=== PATIENT | female | born 1940 | race Caucasian/White ===

== ENCOUNTER 2024-02-12 15:49 | Observation (INO) | payer MEDICARE ==
--- NOTE | 2024-02-12 16:21 | ERPHSYRPT ---
- History of Present Illness Time Seen by Provider: 02/12/24 16:18 Source: patient, family Physician History: 83-year-old female history of dementia diabetes presents to our ED with a family friend who brought patient to our ED for evaluation of generalized weakness and confusion. Patient appears confused and is not a reliable historian. Patient believes she is here to obtain information on how to administer her home meds. The person that brought patient to our ED is reportedly the of a man who picked our patient up from a [place] [facility] care facility and brought her to his personal home for care. The person that brought patient to our ED left and not available for physician to ask questions Portions of this note were created with voice recognition technology. There may be grammatical, spelling, punctuation or sound alike errors Timing/Duration: today Severity: moderate Modifying Factors: Improves With: nothing Associated Symptoms: denies symptoms Allergies/Adverse Reactions: ampicillin Allergy (Verified 02/12/24 18:28) morphine Allergy (Verified 02/12/24 18:28) pineapple Allergy (Verified 02/12/24 18:28) - Review of Systems Constitutional: No Symptoms, No Fever, No Chills Eyes: No Symptoms Ears, Nose, & Throat: No Symptoms Respiratory: No Symptoms, No Cough, No Dyspnea Cardiac: No Symptoms, No Chest Pain, No Edema, No Syncope Abdominal/Gastrointestinal: No Symptoms, No Abdominal Pain, No Nausea, No Vomiting, No Diarrhea Genitourinary Symptoms: No Symptoms, No Dysuria Musculoskeletal: No Symptoms, No Back Pain, No Neck Pain Skin: No Symptoms, No Rash Neurological: No Symptoms, No Dizziness, No Focal Weakness, No Sensory Changes Psychological: No Symptoms Endocrine: No Symptoms Hematologic/Lymphatic: No Symptoms Immunological/Allergic: No Symptoms All Other Systems: Reviewed and Negative - Nursing Vital Signs Nursing Vital Signs: Initial Vital Signs Temperature 97.1 F 02/12/24 16:05 Pulse Rate 63 02/12/24 16:05 Respiratory Rate 20 02/12/24 16:05 Blood Pressure 172/108 02/12/24 16:05 O2 Sat by Pulse Oximetry 98 02/12/24 16:05 Pain Scale Pain Intensity 0 - Physical Exam General Appearance: no apparent distress, alert Eye Exam: PERRL/EOMI, eyes nml inspection Ears, Nose, Throat Exam: normal ENT inspection, TMs normal, pharynx normal, moist mucous membranes Neck Exam: normal inspection, non-tender, supple, full range of motion Respiratory Exam: normal breath sounds, lungs clear, airway intact, No respiratory distress Cardiovascular Exam: regular rate/rhythm, normal heart sounds, normal peripheral pulses Gastrointestinal/Abdomen Exam: soft, normal bowel sounds, No tenderness, No mass Back Exam: normal inspection, normal range of motion, No CVA tenderness, No vertebral tenderness Extremity Exam: normal inspection, normal range of motion, pelvis stable Neurologic Exam: alert, oriented x 3, cooperative, normal mood/affect, nml cere bellar function, nml station & gait, sensation nml, No motor deficits Skin Exam: normal color, warm, dry, No rash Lymphatic Exam: No adenopathy SpO2 Interpretation: normal SpO2: 98 O2 Delivery: Room Air - Course Nursing assessment & vital signs reviewed: Yes - CT Exams Head CT Interpretation: Tele-radiologist Report (No comps. 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) Ordered Tests: Active Orders 24 hr Category Date Time Status Bedrest ROUTINE Activity 02/12/24 18:45 Active Call Admit Doctor for Orders ON ADMISSION Care 02/12/24 18:44 Active Work Manager ROUTINE Care 02/12/24 18:45 Active Work Manager STAT Care 02/12/24 16:22 Active Code Status Order ROUTINE Care 02/12/24 18:44 Active EKG-ER Only STAT Care 02/12/24 16:21 Active Neuro Checks Q4H Care 02/12/24 18:[address] in Observation ROUTINE Care 02/12/24 18:44 Active Pulse Oximetry (ED) STAT Care 02/12/24 16:21 Active Telemetry q6h Care 02/12/24 18:44 Active Telemetry q6h Care 02/12/24 18:45 Active ACO SDOH Referral ONCE Cons 02/12/24 16:48 Active Consistent Carbohydrate Diet 1800 Calorie Diet 02/13/24 Breakfast Active HEAD WITHOUT CONTRAST [CT] Stat Exams 02/12/24 18:31 Taken CBC W DIFF Stat Lab 02/12/24 16:40 Completed CMP Stat Lab 02/12/24 16:40 Completed CULTURE,URINE Stat Lab 02/12/24 16:58 Received POCT GLUCOSE Stat Lab 02/12/24 15:57 Completed TROPONIN Q4H Lab 02/12/24 16:40 Completed TROPONIN Q4H Lab 02/12/24 20:30 Ordered TROPONIN Q4H Lab 02/13/24 00:30 Ordered UA W/RFX UR CULTURE Stat Lab 02/12/24 16:58 Completed Pulse Oximetry CONTINUOUS RT 02/12/24 18:45 Active Medication Summary Discontinued Medications Generic Name Dose Route Start Last Admin Trade Name Milanq PRN Reason Stop Dose Admin Ceftriaxone Sodium 1 gm in 100 mls @ 200 mls/hr 02/12/24 18:26 02/12/24 18:56 Rocephin 1 Gm / 100 Ml Nacl IV 02/12/24 18:55 Not Given STAT ONE Levofloxacin/Dextrose 500 mg in 100 mls @ 100 mls/hr 02/12/24 18:28 02/12/24 19:57 Levofloxacin 500mg/100ml D5w IV 02/12/24 19:27 100 mls/hr STAT STA 100 mls/hr Administration Levofloxacin/Dextrose Confirm 02/12/24 19:54 Levofloxacin 500mg/100ml D5w Administered 02/12/24 19:55 Dose 500 mg in 100 mls @ ud IV .STK-MED ONE Lab/Rad Data: Laboratory Result Diagrams 02/12/24 16:40 02/12/24 16:40 Laboratory Results 02/12/24 02/12/24 02/12/24 Range/Units 16:58 16:40 16:40 WBC (4.0-10.5) x10^3/uL RBC (4.1-5.4) x10^6/uL Hgb (12.0-16.0) g/dL Hct (35-47) % MCV (78-100) fL MCH (26-32) pg MCHC (32-36) g/dL RDW (11.5-14.0) % Plt Count (150-450) x10^3/uL MPV (7.5-11.0) fL Gran % (36.0-66.0) % Immature Gran % (Auto) (0.00-0.4) % Nucleat RBC Rel Count (0.00-0.1) % Eos # (Auto) (0-0.5) x10^3/uL Immature Gran # (Auto) (0.00-0.03) x10^3u/L Absolute Lymphs (auto) (1.0-4.6) x10^3/uL Absolute Monos (auto) (0.0-1.3) x10^3/uL Absolute Nucleated RBC (0.00-0.01) x10^3u/L Lymphocytes % (24.0-44.0) % Monocytes % (0.0-12.0) % Eosinophils % (0.00-5.0) % Basophils % (0.0-0.4) % Absolute Granulocytes (1.4-6.9) x10^3/uL Basophils # (0-0.4) x10^3/uL Sodium 138 (135-145) mmol/L Potassium 3.7 (3.5-5.1) mmol/L Chloride 106 (98-107) mmol/L Carbon Dioxide 28 (22-30) mmol/L Anion Gap 8.5 (5-15) MEQ/L BUN 22 H (7-17) mg/dL Creatinine 1.10 H (0.52-1.04) mg/dL Estimated GFR 49.9 ML/MIN Glucose 134 H (74-106) mg/dL POC Glucometer (74 to 106) mg/dL Calcium 9.1 (8.4-10.2) mg/dL Total Bilirubin 0.50 (0.2-1.3) mg/dL AST 22 (14-36) U/L ALT 12 (0-35) U/L Alkaline Phosphatase 54 (38-126) U/L Troponin I < 0.012 (0.000-0.033) ng/mL Serum Total Protein 7.1 (6.3-8.2) g/dL Albumin 3.6 (3.5-5.0) g/dL Urine Color Yellow (Yellow) Urine Appearance Clear (Clear) Urine pH 7.0 (4.6-8.0) Ur Specific [employer] <=1.005 (1.005-1.030) Urine Protein Negative (Negative) Urine Glucose (UA) Negative (Negative) mg/dL Urine Ketones Negative (Negative) Urine Blood Trace (Negative) Urine Nitrite Negative (Negative) Urine Bilirubin Negative (Negative) Urine Urobilinogen 0.2 (0.2) mg/dL Ur Leukocyte Esterase Moderate A (Negative) U Hyaline Cast (Auto) NONE SEEN (0-2) /LPF Urine Microscopic RBC 0-2 (0-5) /HPF Urine Microscopic WBC 51-100 A (0-5) /HPF Ur Epithelial Cells None Seen (None Seen) /HPF Urine Bacteria None Seen (None Seen) /HPF Urine Culture Reflexed YES (NO) 02/12/24 02/12/24 Range/Units 16:40 15:57 WBC 8.6 (4.0-10.5) x10^3/uL RBC 4.96 (4.1-5.4) x10^6/uL Hgb 14.2 (12.0-16.0) g/dL Hct 44.2 (35-47) % MCV 89.1 (78-100) fL MCH 28.6 (26-32) pg MCHC 32.1 (32-36) g/dL RDW 14.4 H (11.5-14.0) % Plt Count 189 (150-450) x10^3/uL MPV 11.5 H (7.5-11.0) fL Gran % 55.7 (36.0-66.0) % Immature Gran % (Auto) 0.2 (0.00-0.4) % Nucleat RBC Rel Count 0.0 (0.00-0.1) % Eos # (Auto) 0.18 (0-0.5) x10^3/uL Immature Gran # (Auto) 0.02 (0.00-0.03) x10^3u/L Absolute Lymphs (auto) 3.05 (1.0-4.6) x10^3/uL Absolute Monos (auto) 0.51 (0.0-1.3) x10^3/uL Absolute Nucleated RBC 0.00 (0.00-0.01) x10^3u/L Lymphocytes % 35.4 (24.0-44.0) % Monocytes % 5.9 (0.0-12.0) % Eosinophils % 2.1 (0.00-5.0) % Basophils % 0.7 (0.0-0.4) % Absolute Granulocytes 4.79 (1.4-6.9) x10^3/uL Basophils # 0.06 (0-0.4) x10^3/uL Sodium (135-145) mmol/L Potassium (3.5-5.1) mmol/L Chloride (98-107) mmol/L Carbon Dioxide (22-30) mmol/L Anion Gap (5-15) MEQ/L BUN (7-17) mg/dL Creatinine (0.52-1.04) mg/dL Estimated GFR ML/MIN Glucose (74-106) mg/dL POC Glucometer 135 H (74 to 106) mg/dL Calcium (8.4-10.2) mg/dL Total Bilirubin (0.2-1.3) mg/dL AST (14-36) U/L ALT (0-35) U/L Alkaline Phosphatase (38-126) U/L Troponin I (0.000-0.033) ng/mL Serum Total Protein (6.3-8.2) g/dL Albumin (3.5-5.0) g/dL Urine Color (Yellow) Urine Appearance (Clear) Urine pH (4.6-8.0) Ur Specific [employer] (1.005-1.030) Urine Protein (Negative) Urine Glucose (UA) (Negative) mg/dL Urine Ketones (Negative) Urine Blood (Negative) Urine Nitrite (Negative) Urine Bilirubin (Negative) Urine Urobilinogen (0.2) mg/dL Ur Leukocyte Esterase (Negative) U Hyaline Cast (Auto) (0-2) /LPF Urine Microscopic RBC (0-5) /HPF Urine Microscopic WBC (0-5) /HPF Ur Epithelial Cells (None Seen) /HPF Urine Bacteria (None Seen) /HPF Urine Culture Reflexed (NO) - Progress Progress: improved Progress Note: Patient accepted by hospitalist at 6:44 PM 83-year-old female presents to our ED. Patient was brought by family friend. Patient appears to be somewhat confused. Patient per report has a history of dementia diabetes. However today per family friend patient appeared somewhat more confused today than normal. Workup reveals urinary tract infection antibiotics initiated. At this point we are not sure of next of kin. Those that brought patient to our ED or family friend did not family. CT head negative for acute intracranial pathology. Patient will be admitted for treatment of her urinary tract infection and possible placement. Patient agrees to admission to [facility] for further evaluation and treatment. Complexity problem addressed is moderate acute complicated No critical care time Complex of data reviewed and analyzed extensive. Test ordered test reviewed results analyzed and correlated clinically with history and physical exam. Risk of complication and or risk morbidity/mortality patient management is high. Patient requires hospitalization for further evaluation and treatment. Stable. Time spent to admit patient approximately 20 minutes. Plan of care established for shared decision making. No social determinants of health present impede follow-up. Portions of this note were created with voice recognition technology. There may be grammatical, spelling, punctuation or sound alike errors 02/12/24 18:46 Counseled pt/family regarding: lab results, diagnosis, need for follow-up, rad results - Departure Departure Disposition: Observation Clinical Impression: UTI (urinary tract infection) Condition: Stable Critical Care Time: No Referrals: DOCTOR,NO FAMILY [Primary Care Provider] - Follow up/PCP as directed
[2024-02-12 16:48] LABS: Absolute Neutrophil Ct (ANC) 4.79 x10^3/uL (1.4-6.9); BASOPHIL % 0.7 % (0.0-0.4); Basophil (Absolute #) 0.06 x10^3/uL (0-0.4); Eosinophil % 2.1 % (0.00-5.0); Eosinophil (Absolute #) 0.18 x10^3/uL (0-0.5); Hematocrit 44.2 % (35-47); Hemoglobin 14.2 g/dL (12.0-16.0); IMMATURE GRAN # 0.02 x10^3u/L (0.00-0.03); IMMATURE GRAN % 0.2 % (0.00-0.4); Lymphocyte (Absolute #) 3.05 x10^3/uL (1.0-4.6); Lymphocytes % 35.4 % (24.0-44.0); Mean Cell Volume 89.1 fL (78-100); Mean Corpuscular Hemoglobin 28.6 pg (26-32); Mean Corpuscular Hgb Concent. 32.1 g/dL (32-36); Mean Platelet Volume 11.5 fL (7.5-11.0); Monocyte (Absolute #) 0.51 x10^3/uL (0.0-1.3); Monocytes % 5.9 % (0.0-12.0); Neutrophil % 55.7 % (36.0-66.0); Platelet Count 189 x10^3/uL (150-450); Red Blood Count 4.96 x10^6/uL (4.1-5.4); Red Cell Distribution Width 14.4 % (11.5-14.0); White Blood Count 8.6 x10^3/uL (4.0-10.5)
[2024-02-12 17:00] LABS: ALBUMIN 3.6 g/dL (3.5-5.0); ANION GAP 8.5 MEQ/L (5-15); BILIRUBIN,TOTAL 0.5 mg/dL (0.2-1.3); Calcium 9.1 mg/dL (8.4-10.2); Creatinine 1 1.1 mg/dL (0.52-1.04); EST GLOMERULAR FILTRATION RATE 49.9 ML/MIN; Potassium 3.7 mmol/L (3.5-5.1); Total Protein 7.1 g/dL (6.3-8.2)
[2024-02-12 17:16] LABS: Appearance Clear (Clear); Bacteria None Seen /HPF (None Seen); Bilirubin Negative (Negative); Blood Trace (Negative); Epithelial Cells None Seen /HPF (None Seen); Glucose, Urine Negative (Negative); Hyaline Casts NONE SEEN /LPF (0-2); Ketones Negative (Negative); Leukocyte Esterase Moderate (Negative); Nitrite Negative (Negative); Protein,Urine Dip Negative (Negative); RBC 0-2 /HPF (0-5); Specific Gravity <=1.005 (1.005-1.030); Urobilinogen 0.2 mg/dL (0.2); WBC 51-100 /HPF (0-5)
[2024-02-12 17:22] LABS: ADD URINE CULTURE? YES (NO)
[2024-02-12] MEDS: ROCEPHIN 1 GM / 100 ML NaCl 1 GM/100 ML IVPB IV ONE (18:56)
[2024-02-12] MEDS ORDERED: Levofloxacin 500MG/100ML D5W 500 MG/100 ML BAG IV ONE (19:54)
[2024-02-12] MEDS: Levofloxacin 500MG/100ML D5W 500 MG/100 ML BAG IV STA (19:57)
--- NOTE | 2024-02-12 21:15 | PCM.HP ---
History of Present Illness - Chief Complaint Chief Complaint: Urinary tract infection, confusion Date: 02/12/24 History of Present Illness: 83-year-old female history of dementia, diabetes brought to ER by a family friend for evaluation of generalized weakness and confusion. Patient appears confused and is not a reliable historian. Most of info obtained were from ER chart review,pt denied dysuria,Flank pain, no chest pain or SOB,She reported good PO intake, she told me that she does not like the facility as they were not giving her meds.She reporting ongoing back pain In ER her V/s were stable except BP was running towards higher side, All lab w/u essentially -ve except Urine was +ve for too nemerous WBC and LE +ve, CT HEAD unremarkable.Pt admitted for further care.During thet mika of my encounter there was no one in the room beside pt. - Review of Systems Constitutional: No Fever, No Chills (ROS obtained by the help of Staff at bedside all came out -ve except mentioned in HABEMATOLEL) Eyes: No Symptoms Ears, Nose, & Throat: No Symptoms Respiratory: No Cough, No Short Of Breath Cardiac: No Chest Pain, No Edema, No Syncope Abdominal/Gastrointestinal: No Abdominal Pain, No Nausea, No Vomiting, No Diarrhea Genitourinary Symptoms: No Dysuria Musculoskeletal: No Back Pain, No Neck Pain Skin: No Rash Neurological: No Dizziness, No Focal Weakness, No Sensory Changes Psychological: No Symptoms Endocrine: No Symptoms Hematologic/Lymphatic: No Symptoms Immunological/Allergic: No Symptoms Medications & Allergies Home Medications: Home Medication List Acetaminophen 325 mg [Tylenol 325 mg] 325 mg PO Q4H PRN PRN 02/12/24 [History Confirmed 02/12/24] Atorvastatin Calcium 40 mg PO HS 02/12/24 [History Confirmed 02/12/24] Buspirone HCl 10 mg PO TID 02/12/24 [History Confirmed 02/12/24] Calcium Carbonate [Tums] 500 mg PO Q4H PRN PRN 02/12/24 [History Confirmed 02/12/24] Diclofenac Sodium [Voltaren Arthritis Pain] 1 gm TP DAILY PRN PRN 02/12/24 [History Confirmed 02/12/24] Docusate Sodium 1 tab PO BID 02/12/24 [History Confirmed 02/12/24] Glucagon 1 mg [GlucaGen 1 MG] 1 mg IJ ACHS PRN 02/12/24 [History Confirmed 02/12/24] Guaifenesin/Dextromethorphan [Siltussin Dm [place] 100-10Mg/5 ml] 10 ml PO Q6H PRN PRN 02/12/24 [History Confirmed 02/12/24] Insulin Glargine [Lantus Insulin] 11 unit SQ ACHS 02/12/24 [History Confirmed 02/12/24] Insulin Lispro [Admelog Solostar] See Rx Instructions .ROUTE .COMPLEX 02/12/24 [History Confirmed 02/12/24] Magnesium Hydroxide [Milk of Magnesia] 30 ml PO DAILY PRN PRN 02/12/24 [History Confirmed 02/12/24] Propylene Glycol/Peg 400 [Genteal Tears Severe Gel Drops] 1 drop Q6H PRN PRN 02/12/24 [History Confirmed 02/12/24] Rivaroxaban [Xarelto] 1 tab PO DAILY 02/12/24 [History Confirmed 02/12/24] lisinopriL [Lisinopril] 2.5 mg PO DAILY 02/12/24 [History Confirmed 02/12/24] ondansetron HCL [Zofran] 1 tab PO Q6HPRN PRN 02/12/24 [History Confirmed 02/12/24] Allergies/Adverse Reactions: Allergies Allergy/AdvReac Type Severity Reaction Status Date / Time ampicillin Allergy Verified 02/12/24 18:28 morphine Allergy Verified 02/12/24 18:28 pineapple Allergy Verified 02/12/24 18:28 - Past Medical History Past Medical History: Yes Neurological History: Dementia Cardiac History: High Cholesterol, Hypertension Respiratory History: COPD Endocrine Medical History: Diabetes Type II GI Medical History: GERD Pyscho-Social History: Anxiety, Depression Comment: PE. 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 ([facility]) - Past Surgical History Other Surgical History: Unable to obtain at this time - Social History Smoking Status: Never smoker Exposure to second hand smoke: No Alcohol: None Drug Use: none - Social Determinants of Health Will the patient participate in the screening: Yes Do you worry about a steady place to live?: No Do you have any problems with any of the following?: No known problems In the past 12 months,have you had to go without utilities?: No Have you or anyone in your house had to go without enough: No Transportation Issues: No Has anyone in your support network made you feel unsafe?: No Comment: Patient does not worry about a steady place to live but does need assistance with one due to inability to return to previous residence at this time. - Physical Exam Vital Signs: Vital Signs - 24 hr Temp Pulse Resp BP BP Pulse Ox 02/12/24 20:09 98 02/12/24 19:50 76 20 134/56 98 02/12/24 19:30 72 20 98 02/12/24 19:10 71 18 97 02/12/24 19:00 67 20 97 02/12/24 18:27 59 L 16 168/78 97 02/12/24 17:00 56 L 18 164/76 98 02/12/24 16:59 67 17 159/102 97 02/12/24 16:31 152/106 02/12/24 16:21 98 02/12/24 16:05 97.1 F 63 20 172/108 98 Additional Findings: HEENT OLd aged, average built in no distress, Pleasantly confused lady NECK Supple,no thyromegaly, RESP Bilateral equal air entry without Crepts/Wheezes heard GIT Soft non tender,non distended Skin, No rah, no Bruises LEGS No Edema PSYCH Good mood and judgement NEURO AOX2, no focal deficit 02/12/24 22:45 Results - Labs Lab/Micro Results: Lab Results-Last 24 Hours 02/12/24 02/12/24 02/12/24 Range/Units 15:57 16:40 16:40 WBC 8.6 (4.0-10.5) x10^3/uL RBC 4.96 (4.1-5.4) x10^6/uL Hgb 14.2 (12.0-16.0) g/dL Hct 44.2 (35-47) % MCV 89.1 (78-100) fL MCH 28.6 (26-32) pg MCHC 32.1 (32-36) g/dL RDW 14.4 H (11.5-14.0) % Plt Count 189 (150-450) x10^3/uL MPV 11.5 H (7.5-11.0) fL Gran % 55.7 (36.0-66.0) % Immature Gran % (Auto) 0.2 (0.00-0.4) % Nucleat RBC Rel Count 0.0 (0.00-0.1) % Eos # (Auto) 0.18 (0-0.5) x10^3/uL Immature Gran # (Auto) 0.02 (0.00-0.03) x10^3u/L Absolute Lymphs (auto) 3.05 (1.0-4.6) x10^3/uL Absolute Monos (auto) 0.51 (0.0-1.3) x10^3/uL Absolute Nucleated RBC 0.00 (0.00-0.01) x10^3u/L Lymphocytes % 35.4 (24.0-44.0) % Monocytes % 5.9 (0.0-12.0) % Eosinophils % 2.1 (0.00-5.0) % Basophils % 0.7 (0.0-0.4) % Absolute Granulocytes 4.79 (1.4-6.9) x10^3/uL Basophils # 0.06 (0-0.4) x10^3/uL Sodium 138 (135-145) mmol/L Potassium 3.7 (3.5-5.1) mmol/L Chloride 106 (98-107) mmol/L Carbon Dioxide 28 (22-30) mmol/L Anion Gap 8.5 (5-15) MEQ/L BUN 22 H (7-17) mg/dL Creatinine 1.10 H (0.52-1.04) mg/dL Estimated GFR 49.9 ML/MIN Glucose 134 H (74-106) mg/dL POC Glucometer 135 H (74 to 106) mg/dL Calcium 9.1 (8.4-10.2) mg/dL Total Bilirubin 0.50 (0.2-1.3) mg/dL AST 22 (14-36) U/L ALT 12 (0-35) U/L Alkaline Phosphatase 54 (38-126) U/L Troponin I (0.000-0.033) ng/mL Serum Total Protein 7.1 (6.3-8.2) g/dL Albumin 3.6 (3.5-5.0) g/dL Urine Color (Yellow) Urine Appearance (Clear) Urine pH (4.6-8.0) Ur Specific [employer] (1.005-1.030) Urine Protein (Negative) Urine Glucose (UA) (Negative) mg/dL Urine Ketones (Negative) Urine Blood (Negative) Urine Nitrite (Negative) Urine Bilirubin (Negative) Urine Urobilinogen (0.2) mg/dL Ur Leukocyte Esterase (Negative) U Hyaline Cast (Auto) (0-2) /LPF Urine Microscopic RBC (0-5) /HPF Urine Microscopic WBC (0-5) /HPF Ur Epithelial Cells (None Seen) /HPF Urine Bacteria (None Seen) /HPF Urine Culture Reflexed (NO) 02/12/24 02/12/24 02/12/24 Range/Units 16:40 16:58 19:47 WBC (4.0-10.5) x10^3/uL RBC (4.1-5.4) x10^6/uL Hgb (12.0-16.0) g/dL Hct (35-47) % MCV (78-100) fL MCH (26-32) pg MCHC (32-36) g/dL RDW (11.5-14.0) % Plt Count (150-450) x10^3/uL MPV (7.5-11.0) fL Gran % (36.0-66.0) % Immature Gran % (Auto) (0.00-0.4) % Nucleat RBC Rel Count (0.00-0.1) % Eos # (Auto) (0-0.5) x10^3/uL Immature Gran # (Auto) (0.00-0.03) x10^3u/L Absolute Lymphs (auto) (1.0-4.6) x10^3/uL Absolute Monos (auto) (0.0-1.3) x10^3/uL Absolute Nucleated RBC (0.00-0.01) x10^3u/L Lymphocytes % (24.0-44.0) % Monocytes % (0.0-12.0) % Eosinophils % (0.00-5.0) % Basophils % (0.0-0.4) % Absolute Granulocytes (1.4-6.9) x10^3/uL Basophils # (0-0.4) x10^3/uL Sodium (135-145) mmol/L Potassium (3.5-5.1) mmol/L Chloride (98-107) mmol/L Carbon Dioxide (22-30) mmol/L Anion Gap (5-15) MEQ/L BUN (7-17) mg/dL Creatinine (0.52-1.04) mg/dL Estimated GFR ML/MIN Glucose (74-106) mg/dL POC Glucometer (74 to 106) mg/dL Calcium (8.4-10.2) mg/dL Total Bilirubin (0.2-1.3) mg/dL AST (14-36) U/L ALT (0-35) U/L Alkaline Phosphatase (38-126) U/L Troponin I < 0.012 < 0.012 (0.000-0.033) ng/mL Serum Total Protein (6.3-8.2) g/dL Albumin (3.5-5.0) g/dL Urine Color Yellow (Yellow) Urine Appearance Clear (Clear) Urine pH 7.0 (4.6-8.0) Ur Specific [employer] <=1.005 (1.005-1.030) Urine Protein Negative (Negative) Urine Glucose (UA) Negative (Negative) mg/dL Urine Ketones Negative (Negative) Urine Blood Trace (Negative) Urine Nitrite Negative (Negative) Urine Bilirubin Negative (Negative) Urine Urobilinogen 0.2 (0.2) mg/dL Ur Leukocyte Esterase Moderate A (Negative) U Hyaline Cast (Auto) NONE SEEN (0-2) /LPF Urine Microscopic RBC 0-2 (0-5) /HPF Urine Microscopic WBC 51-100 A (0-5) /HPF Ur Epithelial Cells None Seen (None Seen) /HPF Urine Bacteria None Seen (None Seen) /HPF Urine Culture Reflexed YES (NO) Accuchecks Date 02/12/24 Time 15:57 - Radiology Impressions Radiology Exams & Impressions: Radiology Procedures Category Date Time Status HEAD WITHOUT CONTRAST [CT] Stat Exams 02/12/24 18:31 Taken Assessment/Plan (1) UTI (urinary tract infection) Current Visit: Yes Status: Acute Code(s): N39.0 - URINARY TRACT INFECTION, SITE NOT SPECIFIED (2) Diabetes mellitus Current Visit: Yes Status: Chronic Code(s): E11.9 - TYPE 2 DIABETES MELLITUS WITHOUT COMPLICATIONS (3) Acute encephalopathy Current Visit: Yes Status: Acute Code(s): G93.40 - ENCEPHALOPATHY, UNSPECIFIED (4) Acute encephalopathy Current Visit: Yes Status: Acute Code(s): G93.40 - ENCEPHALOPATHY, UNSPECIFIED (5) Weakness Current Visit: Yes Status: Acute Code(s): R53.1 - WEAKNESS Telemedicine Encounter - Telemedicine Encounter Telemedicine Encounter: The entirety of this encounter was performed via Telemedicine" Weakness,Generalized Ct head -ve Will check TSH, Vitamin B12, Vitamin D C/w hydration will Get Pt/Ot evaluation Acute Encephalopathy Seems metabolic due to underlying UTI Ct Head -ve Sleep wake orientaion Will avoid sedatives Urinary tract infection C/w ceftriaxone keep f/u cultures DM Insulin dependent type 2 will check HBAIC C/w SSI Keep holding lantus tonight and watch BSL closely Hypertension Systolic Bp running high upon admit, now stable resumed home lisinopril Hydralazine as per need for systolic > 180 Chronic Anticoagulation For H/o DVt/PE, Pt unsure, taking it for years Resumed here H/o Breast cancer in remission DVT PPX Xarelto Code status DNR D/c planning, cloth worker involved for safe placement
[2024-02-12] MEDS ORDERED: HUMALOG SQ PRN (21:34)
[2024-02-12] MEDS ORDERED: MILK OF MAGNESIA 30 ML PO PRN (21:34)
[2024-02-12] MEDS ORDERED: DICLOFENAC SODIUM TP PRN (21:50)
[2024-02-12] MEDS ORDERED: Docusate Sodium 100 MG ONE (22:24)
[2024-02-12] MEDS ORDERED: ZOCOR 20MG ONE (22:24)
[2024-02-12] MEDS: ZOCOR 20MG PO SCH (22:31)
[2024-02-12] MEDS: NON-FORMULARY ITEM (Docusate Sodium 100 MG Capsule) PO SCH (22:31)
[2024-02-12] MEDS: Sodium Chloride 0.9% 1000 ML 1,000 ML IV SCH (22:31)
[2024-02-12] MEDS: BUSPAR 5 MG PO SCH (22:31)
[2024-02-12] MEDS: LIPITOR 40MG PO SCH (22:32)
[2024-02-13 02:50] LABS: Hematocrit 39.4 % (35-47); Hemoglobin 12.9 g/dL (12.0-16.0); Mean Cell Volume 89.3 fL (78-100); Mean Corpuscular Hemoglobin 29.3 pg (26-32); Mean Corpuscular Hgb Concent. 32.7 g/dL (32-36); Mean Platelet Volume 11.2 fL (7.5-11.0); Platelet Count 147 x10^3/uL (150-450); Red Blood Count 4.41 x10^6/uL (4.1-5.4); Red Cell Distribution Width 14.3 % (11.5-14.0); White Blood Count 6.7 x10^3/uL (4.0-10.5)
[2024-02-13 03:01] LABS: ANION GAP 6.1 MEQ/L (5-15); Calcium 8.7 mg/dL (8.4-10.2); Creatinine 1 1.02 mg/dL (0.52-1.04); EST GLOMERULAR FILTRATION RATE 54.6 ML/MIN; Potassium 3.6 mmol/L (3.5-5.1)
--- NOTE | 2024-02-13 08:34 | XRAY ---
Indication: Confusion. Multiple contiguous axial images obtained through the head without contrast. Comparison: None Age-appropriate global atrophy, mild periventricular degenerative micro-ischemia bilaterally, and remote lacunar infarct left internal capsule. No acute intracranial hemorrhage, abnormal extra-axial fluid collection, or mass effect. Fourth ventricle is midline without hydrocephalus. Bony calvarium intact. Visualized paranasal sinuses and mastoid air cells are clear. Impression: Nonacute senile brain with remote lacunar infarct left internal capsule.
[2024-02-13] MEDS: ROCEPHIN 1 GM / 100 ML NaCl 1 GM/100 ML IVPB IV SCH (09:09)
[2024-02-13] MEDS: Docusate Sodium 100 MG PO SCH (09:09)
[2024-02-13] MEDS: Zestril 5 MG PO SCH (09:09)
[2024-02-13] MEDS ORDERED: NON-FORMULARY ITEM (Rivaroxaban [Xarelto] 20 MG Tablet) PO SCH (10:00)
[2024-02-13] MEDS ORDERED: ENOXAPARIN SODIUM SQ SCH (10:00)
[2024-02-13] MEDS: XARELTO 10 MG TABLET PO SCH (10:24)
--- NOTE | 2024-02-13 11:59 | XRAY ---
Indication: Rehabilitation placement. Comparison: None Portable chest inflated and clear with incidental tiny right base calcified granuloma. Heart not enlarged with incidental small right hilar calcified nodes. Bony thorax intact with osteopenia and mild degenerative changes. Incidental right axillary and right upper quadrant abdominal surgical clips. Impression: Nonacute chest with chronic features.
--- NOTE | 2024-02-13 12:32 | PCM.NOTE ---
Date and Time: 02/13/24 1231 Subjective Assessment: 02/13/24 83-year-old female history of dementia, diabetes type II, hyperlipidemia, COPD, GERD, anxiety, depression, OA and constipation. She brought to ER by a family friend for evaluation of generalized weakness and confusion on 02/12/24. Patient appeared confused and was not a reliable historian on admission. Most of info obtained was obtained from ER chart review on admission. In ER pt denied dysuria, flank pain, no chest pain or SO. She reported good PO intake, she told me that she does not like the facility as they were not giving her meds.She reporting ongoing back pain In ER her v/s were stable except BP was running towards higher side. All lab w/u essentially negative except Urine was + for t oo numerous WBC and LE +, CT HEAD unremarkable. Pt admitted for further care. Today pt is awake and alert. There was a 3 page letter on the chart from the family friend she had been living with. Apparently pt had lived at an [facility] and reported she was going to kill herself as the facility would not let her leave. Therefore, a friend picked her up and moved her in with his family. The family can no longer take care of her and dropped her off to the ER with a note asking for placement for her. Pt denies suicidal or suicidal ideation. Discussed note by friend with pt and that she can no longer live there. She is willing to go to a facility just not the same place she was at before. Psych consulted for further evaluation. Discussed case with case management. Urine culture is gram negative with sensitivity pending. She denies any further concerns at this time. - Review of Systems Constitutional: No Fever, No Chills Eyes: No Symptoms Ears, Nose, & Throat: No Symptoms Respiratory: No Cough, No Short Of Breath Cardiac: No Chest Pain, No Edema, No Syncope Abdominal/Gastrointestinal: No Abdominal Pain, No Nausea, No Vomiting, No Diarrhea Genitourinary Symptoms: No Dysuria Musculoskeletal: No Back Pain, No Neck Pain Skin: No Rash Neurological: No Dizziness, No Focal Weakness, No Sensory Changes Psychological: No Symptoms Endocrine: No Symptoms Hematologic/Lymphatic: No Symptoms Immunological/Allergic: No Symptoms Objective Exam General Appearance: no apparent distress, alert Neurologic Exam: alert, oriented x 3, cooperative, normal mood/affect, nml cerebellar function, sensation nml, No motor deficits Skin Exam: normal color, warm, dry Eye Exam: PERRL, EOMI, eyes nml inspection Ears, Nose, Throat Exam: normal ENT inspection, pharynx normal, moist mucous membranes Neck Exam: normal inspection, non-tender, supple, full range of motion Respiratory Exam: normal breath sounds, lungs clear, No respiratory distress Cardiovascular Exam: regular rate/rhythm, normal heart sounds Gastrointestinal/Abdomen Exam: soft, No tenderness, No mass Extremity Exam: normal inspection, normal range of motion Back Exam: normal inspection, normal range of motion, No CVA tenderness, No vertebral tenderness Pelvic Exam: deferred Rectal Exam: deferred Objective Data Vital Signs: Vital Signs - 24 hr Temp Pulse Resp BP BP Pulse Ox 02/13/24 11:57 97.4 F 57 L 15 144/68 97 02/13/24 07:40 97.7 F 58 L 16 140/64 99 02/13/24 04:00 97.5 F 60 18 129/64 99 02/12/24 23:34 97.9 F 56 L 18 166/69 98 02/12/24 21:10 97.5 F 59 L 20 162/72 98 02/12/24 20:09 98 02/12/24 19:50 76 20 134/56 98 02/12/24 19:30 72 20 98 02/12/24 19:10 71 18 97 02/12/24 19:00 67 20 97 02/12/24 18:27 59 L 16 168/78 97 02/12/24 17:00 56 L 18 164/76 98 02/12/24 16:59 67 17 159/102 97 02/12/24 16:31 152/106 02/12/24 16:21 98 02/12/24 16:05 97.1 F 63 20 172/108 98 Pain Assessment - Last Documented Pain Intensity 0 Intake and Output: Intake & Output 02/11/24 02/12/24 02/13/24 02/14/24 11:59 11:59 11:59 11:59 Intake Total 1034 Balance 1034 Weight 66.5 kg Lab Results: Lab Results-Last 24 Hours 02/12/24 02/12/24 02/12/24 Range/Units 15:57 16:40 16:40 WBC 8.6 (4.0-10.5) x10^3/uL RBC 4.96 (4.1-5.4) x10^6/uL Hgb 14.2 (12.0-16.0) g/dL Hct 44.2 (35-47) % MCV 89.1 (78-100) fL MCH 28.6 (26-32) pg MCHC 32.1 (32-36) g/dL RDW 14.4 H (11.5-14.0) % Plt Count 189 (150-450) x10^3/uL MPV 11.5 H (7.5-11.0) fL Gran % 55.7 (36.0-66.0) % Immature Gran % (Auto) 0.2 (0.00-0.4) % Nucleat RBC Rel Count 0.0 (0.00-0.1) % Eos # (Auto) 0.18 (0-0.5) x10^3/uL Immature Gran # (Auto) 0.02 (0.00-0.03) x10^3u/L Absolute Lymphs (auto) 3.05 (1.0-4.6) x10^3/uL Absolute Monos (auto) 0.51 (0.0-1.3) x10^3/uL Absolute Nucleated RBC 0.00 (0.00-0.01) x10^3u/L Lymphocytes % 35.4 (24.0-44.0) % Monocytes % 5.9 (0.0-12.0) % Eosinophils % 2.1 (0.00-5.0) % Basophils % 0.7 (0.0-0.4) % Absolute Granulocytes 4.79 (1.4-6.9) x10^3/uL Basophils # 0.06 (0-0.4) x10^3/uL Sodium 138 (135-145) mmol/L Potassium 3.7 (3.5-5.1) mmol/L Chloride 106 (98-107) mmol/L Carbon Dioxide 28 (22-30) mmol/L Anion Gap 8.5 (5-15) MEQ/L BUN 22 H (7-17) mg/dL Creatinine 1.10 H (0.52-1.04) mg/dL Estimated GFR 49.9 ML/MIN Glucose 134 H (74-106) mg/dL POC Glucometer 135 H (74 to 106) mg/dL Hemoglobin A1c (4.5-6.0) % Calcium 9.1 (8.4-10.2) mg/dL Total Bilirubin 0.50 (0.2-1.3) mg/dL AST 22 (14-36) U/L ALT 12 (0-35) U/L Alkaline Phosphatase 54 (38-126) U/L Troponin I (0.000-0.033) ng/mL Serum Total Protein 7.1 (6.3-8.2) g/dL Albumin 3.6 (3.5-5.0) g/dL Urine Color (Yellow) Urine Appearance (Clear) Urine pH (4.6-8.0) Ur Specific [place] (1.005-1.030) Urine Protein (Negative) Urine Glucose (UA) (Negative) mg/dL Urine Ketones (Negative) Urine Blood (Negative) Urine Nitrite (Negative) Urine Bilirubin (Negative) Urine Urobilinogen (0.2) mg/dL Ur Leukocyte Esterase (Negative) U Hyaline Cast (Auto) (0-2) /LPF Urine Microscopic RBC (0-5) /HPF Urine Microscopic WBC (0-5) /HPF Ur Epithelial Cells (None Seen) /HPF Urine Bacteria (None Seen) /HPF Urine Culture Reflexed (NO) 02/12/24 02/12/24 02/12/24 Range/Units 16:40 16:58 19:47 WBC (4.0-10.5) x10^3/uL RBC (4.1-5.4) x10^6/uL Hgb (12.0-16.0) g/dL Hct (35-47) % MCV (78-100) fL MCH (26-32) pg MCHC (32-36) g/dL RDW (11.5-14.0) % Plt Count (150-450) x10^3/uL MPV (7.5-11.0) fL Gran % (36.0-66.0) % Immature Gran % (Auto) (0.00-0.4) % Nucleat RBC Rel Count (0.00-0.1) % Eos # (Auto) (0-0.5) x10^3/uL Immature Gran # (Auto) (0.00-0.03) x10^3u/L Absolute Lymphs (auto) (1.0-4.6) x10^3/uL Absolute Monos (auto) (0.0-1.3) x10^3/uL Absolute Nucleated RBC (0.00-0.01) x10^3u/L Lymphocytes % (24.0-44.0) % Monocytes % (0.0-12.0) % Eosinophils % (0.00-5.0) % Basophils % (0.0-0.4) % Absolute Granulocytes (1.4-6.9) x10^3/uL Basophils # (0-0.4) x10^3/uL Sodium (135-145) mmol/L Potassium (3.5-5.1) mmol/L Chloride (98-107) mmol/L Carbon Dioxide (22-30) mmol/L Anion Gap (5-15) MEQ/L BUN (7-17) mg/dL Creatinine (0.52-1.04) mg/dL Estimated GFR ML/MIN Glucose (74-106) mg/dL POC Glucometer (74 to 106) mg/dL Hemoglobin A1c (4.5-6.0) % Calcium (8.4-10.2) mg/dL Total Bilirubin (0.2-1.3) mg/dL AST (14-36) U/L ALT (0-35) U/L Alkaline Phosphatase (38-126) U/L Troponin I < 0.012 < 0.012 (0.000-0.033) ng/mL Serum Total Protein (6.3-8.2) g/dL Albumin (3.5-5.0) g/dL Urine Color Yellow (Yellow) Urine Appearance Clear (Clear) Urine pH 7.0 (4.6-8.0) Ur Specific [place] <=1.005 (1.005-1.030) Urine Protein Negative (Negative) Urine Glucose (UA) Negative (Negative) mg/dL Urine Ketones Negative (Negative) Urine Blood Trace (Negative) Urine Nitrite Negative (Negative) Urine Bilirubin Negative (Negative) Urine Urobilinogen 0.2 (0.2) mg/dL Ur Leukocyte Esterase Moderate A (Negative) U Hyaline Cast (Auto) NONE SEEN (0-2) /LPF Urine Microscopic RBC 0-2 (0-5) /HPF Urine Microscopic WBC 51-100 A (0-5) /HPF Ur Epithelial Cells None Seen (None Seen) /HPF Urine Bacteria None Seen (None Seen) /HPF Urine Culture Reflexed YES (NO) 02/12/24 02/13/24 02/13/24 Range/Units 23:11 02:30 02:30 WBC 6.7 (4.0-10.5) x10^3/uL RBC 4.41 (4.1-5.4) x10^6/uL Hgb 12.9 (12.0-16.0) g/dL Hct 39.4 (35-47) % MCV 89.3 (78-100) fL MCH 29.3 (26-32) pg MCHC 32.7 (32-36) g/dL RDW 14.3 H (11.5-14.0) % Plt Count 147 L (150-450) x10^3/uL MPV 11.2 H (7.5-11.0) fL Gran % (36.0-66.0) % Immature Gran % (Auto) (0.00-0.4) % Nucleat RBC Rel Count (0.00-0.1) % Eos # (Auto) (0-0.5) x10^3/uL Immature Gran # (Auto) (0.00-0.03) x10^3u/L Absolute Lymphs (auto) (1.0-4.6) x10^3/uL Absolute Monos (auto) (0.0-1.3) x10^3/uL Absolute Nucleated RBC (0.00-0.01) x10^3u/L Lymphocytes % (24.0-44.0) % Monocytes % (0.0-12.0) % Eosinophils % (0.00-5.0) % Basophils % (0.0-0.4) % Absolute Granulocytes (1.4-6.9) x10^3/uL Basophils # (0-0.4) x10^3/uL Sodium (135-145) mmol/L Potassium (3.5-5.1) mmol/L Chloride (98-107) mmol/L Carbon Dioxide (22-30) mmol/L Anion Gap (5-15) MEQ/L BUN (7-17) mg/dL Creatinine (0.52-1.04) mg/dL Estimated GFR ML/MIN Glucose (74-106) mg/dL POC Glucometer 84 (74 to 106) mg/dL Hemoglobin A1c (4.5-6.0) % Calcium (8.4-10.2) mg/dL Total Bilirubin (0.2-1.3) mg/dL AST (14-36) U/L ALT (0-35) U/L Alkaline Phosphatase (38-126) U/L Troponin I < 0.012 (0.000-0.033) ng/mL Serum Total Protein (6.3-8.2) g/dL Albumin (3.5-5.0) g/dL Urine Color (Yellow) Urine Appearance (Clear) Urine pH (4.6-8.0) Ur Specific [place] (1.005-1.030) Urine Protein (Negative) Urine Glucose (UA) (Negative) mg/dL Urine Ketones (Negative) Urine Blood (Negative) Urine Nitrite (Negative) Urine Bilirubin (Negative) Urine Urobilinogen (0.2) mg/dL Ur Leukocyte Esterase (Negative) U Hyaline Cast (Auto) (0-2) /LPF Urine Microscopic RBC (0-5) /HPF Urine Microscopic WBC (0-5) /HPF Ur Epithelial Cells (None Seen) /HPF Urine Bacteria (None Seen) /HPF Urine Culture Reflexed (NO) 02/13/24 02/13/24 02/13/24 Range/Units 02:30 02:30 07:45 WBC (4.0-10.5) x10^3/uL RBC (4.1-5.4) x10^6/uL Hgb (12.0-16.0) g/dL Hct (35-47) % MCV (78-100) fL MCH (26-32) pg MCHC (32-36) g/dL RDW (11.5-14.0) % Plt Count (150-450) x10^3/uL MPV (7.5-11.0) fL Gran % (36.0-66.0) % Immature Gran % (Auto) (0.00-0.4) % Nucleat RBC Rel Count (0.00-0.1) % Eos # (Auto) (0-0.5) x10^3/uL Immature Gran # (Auto) (0.00-0.03) x10^3u/L Absolute Lymphs (auto) (1.0-4.6) x10^3/uL Absolute Monos (auto) (0.0-1.3) x10^3/uL Absolute Nucleated RBC (0.00-0.01) x10^3u/L Lymphocytes % (24.0-44.0) % Monocytes % (0.0-12.0) % Eosinophils % (0.00-5.0) % Basophils % (0.0-0.4) % Absolute Granulocytes (1.4-6.9) x10^3/uL Basophils # (0-0.4) x10^3/uL Sodium 139 (135-145) mmol/L Potassium 3.6 (3.5-5.1) mmol/L Chloride 110 H (98-107) mmol/L Carbon Dioxide 27 (22-30) mmol/L Anion Gap 6.1 (5-15) MEQ/L BUN 19 H (7-17) mg/dL Creatinine 1.02 (0.52-1.04) mg/dL Estimated GFR 54.6 ML/MIN Glucose 80 (74-106) mg/dL POC Glucometer 82 (74 to 106) mg/dL Hemoglobin A1c 6.97 H (4.5-6.0) % Calcium 8.7 (8.4-10.2) mg/dL Total Bilirubin (0.2-1.3) mg/dL AST (14-36) U/L ALT (0-35) U/L Alkaline Phosphatase (38-126) U/L Troponin I (0.000-0.033) ng/mL Serum Total Protein (6.3-8.2) g/dL Albumin (3.5-5.0) g/dL Urine Color (Yellow) Urine Appearance (Clear) Urine pH (4.6-8.0) Ur Specific [place] (1.005-1.030) Urine Protein (Negative) Urine Glucose (UA) (Negative) mg/dL Urine Ketones (Negative) Urine Blood (Negative) Urine Nitrite (Negative) Urine Bilirubin (Negative) Urine Urobilinogen (0.2) mg/dL Ur Leukocyte Esterase (Negative) U Hyaline Cast (Auto) (0-2) /LPF Urine Microscopic RBC (0-5) /HPF Urine Microscopic WBC (0-5) /HPF Ur Epithelial Cells (None Seen) /HPF Urine Bacteria (None Seen) /HPF Urine Culture Reflexed (NO) 02/13/24 Range/Units 11:54 WBC (4.0-10.5) x10^3/uL RBC (4.1-5.4) x10^6/uL Hgb (12.0-16.0) g/dL Hct (35-47) % MCV (78-100) fL MCH (26-32) pg MCHC (32-36) g/dL RDW (11.5-14.0) % Plt Count (150-450) x10^3/uL MPV (7.5-11.0) fL Gran % (36.0-66.0) % Immature Gran % (Auto) (0.00-0.4) % Nucleat RBC Rel Count (0.00-0.1) % Eos # (Auto) (0-0.5) x10^3/uL Immature Gran # (Auto) (0.00-0.03) x10^3u/L Absolute Lymphs (auto) (1.0-4.6) x10^3/uL Absolute Monos (auto) (0.0-1.3) x10^3/uL Absolute Nucleated RBC (0.00-0.01) x10^3u/L Lymphocytes % (24.0-44.0) % Monocytes % (0.0-12.0) % Eosinophils % (0.00-5.0) % Basophils % (0.0-0.4) % Absolute Granulocytes (1.4-6.9) x10^3/uL Basophils # (0-0.4) x10^3/uL Sodium (135-145) mmol/L Potassium (3.5-5.1) mmol/L Chloride (98-107) mmol/L Carbon Dioxide (22-30) mmol/L Anion Gap (5-15) MEQ/L BUN (7-17) mg/dL Creatinine (0.52-1.04) mg/dL Estimated GFR ML/MIN Glucose (74-106) mg/dL POC Glucometer 172 H (74 to 106) mg/dL Hemoglobin A1c (4.5-6.0) % Calcium (8.4-10.2) mg/dL Total Bilirubin (0.2-1.3) mg/dL AST (14-36) U/L ALT (0-35) U/L Alkaline Phosphatase (38-126) U/L Troponin I (0.000-0.033) ng/mL Serum Total Protein (6.3-8.2) g/dL Albumin (3.5-5.0) g/dL Urine Color (Yellow) Urine Appearance (Clear) Urine pH (4.6-8.0) Ur Specific [place] (1.005-1.030) Urine Protein (Negative) Urine Glucose (UA) (Negative) mg/dL Urine Ketones (Negative) Urine Blood (Negative) Urine Nitrite (Negative) Urine Bilirubin (Negative) Urine Urobilinogen (0.2) mg/dL Ur Leukocyte Esterase (Negative) U Hyaline Cast (Auto) (0-2) /LPF Urine Microscopic RBC (0-5) /HPF Urine Microscopic WBC (0-5) /HPF Ur Epithelial Cells (None Seen) /HPF Urine Bacteria (None Seen) /HPF Urine Culture Reflexed (NO) Radiology Exams: Radiology Procedures Category Date Time Status CHEST 1 VIEW (PORTABLE) Routine Exams 02/13/24 10:53 Completed HEAD WITHOUT CONTRAST [CT] Stat Exams 02/12/24 18:31 Completed Assessment/Plan (1) UTI (urinary tract infection) Current Visit: Yes Status: Acute Assessment & Plan: - Ceftriaxoine IV - UC gram negative, sensitivity pending - awake and alert today - IVF Code(s): N39.0 - URINARY TRACT INFECTION, SITE NOT SPECIFIED (2) Type II diabetes mellitus Current Visit: Yes Status: Chronic Qualifiers: Diabetes mellitus terminal operations supervisor insulin use: with terminal operations supervisor use Diabetes m ellitus complication status: without complication Qualified Code(s): E11.9 - Type 2 diabetes mellitus without complications; Z79.4 - computer terminal operator (current) use of insulin Assessment & Plan: - Humalog s/s - Hold lantus for now - accucheck ac/hs - A1C 6.97- controlled (3) HTN (hypertension) Current Visit: Yes Status: Chronic Assessment & Plan: - controlled- continue home meds Code(s): I10 - ESSENTIAL (PRIMARY) HYPERTENSION (4) Hyperlipidemia Current Visit: Yes Status: Chronic Assessment & Plan: - continue statin Code(s): E78.5 - HYPERLIPIDEMIA, UNSPECIFIED (5) History of dementia Current Visit: Yes Status: Chronic Assessment & Plan: - May have sundowners - Does not appear to have acute encephalopathy - Pt awake and alert today. - Pt will need placement currently has no place to live Code(s): Z86.59 - PERSONAL HISTORY OF OTHER MENTAL AND BEHAVIORAL DISORDERS
[2024-02-13] MEDS ORDERED: Tums EX 750 MG PO PRN (12:57)
[2024-02-13] MEDS: Lantus Insulin SQ SCH (13:32)
[2024-02-13] MEDS: HUMALOG SQ PRN (13:33)
[2024-02-13] MEDS: Miralax Powder 17GM PACKET PO SCH (14:01)
[2024-02-13] MEDS ORDERED: XARELTO 10 MG TABLET PO SCH (18:00)
[2024-02-14 06:53] LABS: Hematocrit 37.3 % (35-47); Hemoglobin 12.1 g/dL (12.0-16.0); Mean Cell Volume 90.3 fL (78-100); Mean Corpuscular Hemoglobin 29.3 pg (26-32); Mean Corpuscular Hgb Concent. 32.4 g/dL (32-36); Mean Platelet Volume 11.2 fL (7.5-11.0); Platelet Count 144 x10^3/uL (150-450); Red Blood Count 4.13 x10^6/uL (4.1-5.4); Red Cell Distribution Width 14.3 % (11.5-14.0); White Blood Count 6.7 x10^3/uL (4.0-10.5)
--- NOTE | 2024-02-14 07:20 | PCM.DS ---
Discharge Summary Date of Admission: 02/12/24 21:08 Date of Discharge: 02/14/24 Admitting Physician: LANEY BONILLA MD Consults: Consults on Case 02/12/24 16:48 ACO HIOH Referral ONCE 02/13/24 09:27 Consult,Gi [Psychiatric Consult] STAT Primary Care Provider: NO FAMILY DOCTOR Allergies Allergies ampicillin Allergy (Verified 02/12/24 18:28) morphine Allergy (Verified 02/12/24 18:28) pineapple Allergy (Verified 02/12/24 18:28) Hospital Summary - Hospital Course Hospital Course: 02/13/24 83-year-old female history of dementia, diabetes type II, hyperlipidemia, COPD, GERD, anxiety, depression, OA and constipation. She brought to ER by a family friend for evaluation of generalized weakness and confusion on 02/12/24. Patient appeared confused and was not a reliable historian on admission. Most of info obtained was obtained from ER chart review on admission. In ER pt denied dysuria, flank pain, no chest pain or SO. She reported good PO intake, she told me that she does not like the facility as they were not giving her meds.She reporting ongoing back pain In ER her v/s were stable except BP was running towards higher side. All lab w/u essentially negative except Urine was + for too numerous WBC and LE +, CT HEAD unremarkable. Pt admitted for further care. Today pt is awake and alert. There was a 3 page letter on the chart from the family friend she had been living with. Apparently pt had lived at an [facility] and reported she was going to kill herself as the facility would not let her leave. Therefore, a friend picked her up and moved her in with his family. The family can no longer take care of her and dropped her off to the ER with a note asking for placement for her. Pt denies suicidal or suicidal ideation. Discussed note by friend with pt and that she can no longer live there. She is willing to go to a facility just not the same place she was at before. Psych consulted for further evaluation. Discussed case with case management. Urine culture is gram negative with sensitivity pending. She denies any further concerns at this time. 02/14/24 Pt sitting up in bed. She reports she feels fine. UA came bcak + for e-coli. Will continue OP antibiotics. Discussed UTI prevention. She is awaiting placement. Case management working on this. She did speak with [facility] provider yesterday, report reviewed, and they went over a safety plan with her. She denies suicidal ideation. She denies, CP, SOB, abd. pain, N/V/D. - Vitals & Intake/Output Vital Signs: Vital Signs Temperature 97.7 F 02/14/24 04:00 Pulse Rate 67 02/14/24 04:00 Respiratory Rate 18 02/14/24 04:00 Blood Pressure 141/66 02/14/24 04:00 O2 Sat by Pulse Oximetry 96 02/14/24 04:00 Intake & Output: Intake & Output 02/11/24 02/12/24 02/13/24 02/14/24 11:59 11:59 11:59 11:59 Intake Total 1034 2950 Balance 1034 2950 Weight 66.5 kg - Lab Result Diagrams: 02/14/24 06:40 02/14/24 06:40 Lab Results-Last 24 Hrs: Lab Results-Last 24 Hours 02/13/24 02/13/24 02/13/24 Range/Units 07:45 11:54 17:02 POC Glucometer 82 172 H 115 H (74 to 106) mg/dL 02/13/24 Range/Units 21:36 POC Glucometer 117 H (74 to 106) mg/dL Micro Results-Entire Visit: Microbiology 02/12/24 16:58 Urine Culture - Final Urine, Void Escherichia Coli Accuchecks Date 02/13/24 Date 02/13/24 Time 17:14 Time 11:57 - Radiology Exams Ordered Rad Exams-Entire Visit: Radiology Procedures Category Date Time Status CHEST 1 VIEW (PORTABLE) Routine Exams 02/13/24 10:53 Completed HEAD WITHOUT CONTRAST [CT] Stat Exams 02/12/24 18:31 Completed - Procedures and Test Procedures and Tests throughout Hospitalization: Therapy Orders & Screens 02/12/24 21:34 PT Eval & Treat ( Order) ONCE Reason for Eval:: Weakness Diagnosis: Urinary tract infection, confusion OT Eval and Treat ( Order) ONCE Comment: Physician Instructions: Reason For Exam: Diagnosis: Urinary tract infection, confusion 02/12/24 21:36 ST Eval & Treat ( Order) ROUTINE Comment: Physician Instructions: Reason For Exam: Evaluate: Yes: WEakness Treat: Yes Reason for Eval: Weakness Diagnosis: Urinary tract infection, confusion Discharge Exam General Appearance: no apparent distress, alert Neurologic Exam: alert, oriented x 3, cooperative, normal mood/affect, nml cerebellar function, sensation nml, No motor deficits Eye Exam: PERRL, EOMI, eyes nml inspection Ears, Nose, Throat Exam: normal ENT inspection, pharynx normal, moist mucous membranes Neck Exam: normal inspection, non-tender, supple, full range of motion Respiratory Exam: normal breath sounds, lungs clear, No respiratory distress Cardiovascular Exam: regular rate/rhythm, normal heart sounds Gastrointestinal/Abdomen Exam: soft, No tenderness, No mass Pelvic Exam: deferred Rectal Exam: deferred Back Exam: normal inspection, normal range of motion, No CVA tenderness, No vertebral tenderness Extremity Exam: normal inspection, normal range of motion Skin Exam: normal color, warm, dry Final Diagnosis/Problem List - Final Discharge Diagnosis/Problem (1) UTI (urinary tract infection) Current Visit: Yes Status: Acute Code(s): N39.0 - URINARY TRACT INFECTION, SITE NOT SPECIFIED (2) Type II diabetes mellitus Current Visit: Yes Status: Chronic (3) HTN (hypertension) Current Visit: Yes Status: Chronic Code(s): I10 - ESSENTIAL (PRIMARY) HYPERTENSION (4) Hyperlipidemia Current Visit: Yes Status: Chronic Code(s): E78.5 - HYPERLIPIDEMIA, UNSPECIFIED (5) History of dementia Current Visit: Yes Status: Chronic Assessment & Plan: (1) UTI (urinary tract infection) Current Visit: Yes Status: Acute Assessment & Plan: - Ceftriaxoine IV - UC gram negative, e-coli - awake and alert today - IVF Code(s): N39.0 - URINARY TRACT INFECTION, SITE NOT SPECIFIED (2) Type II diabetes mellitus Current Visit: Yes Status: Chronic Qualifiers: Diabetes mellitus phlebotomy lab assistant insulin use: with phlebotomy lab assistant use Diabetes mellitus complication status: without complication Qualified Code(s): E11.9 - Type 2 diabetes mellitus without complications; Z79.4 - intermediate (current) use of insulin Assessment & Plan: - Humalog s/s - Hold lantus for now - accucheck ac/hs - A1C 6.97- controlled - Lantus resumed (3) HTN (hypertension) Current Visit: Yes Status: Chronic Assessment & Plan: - controlled- continue home meds Code(s): I10 - ESSENTIAL (PRIMARY) HYPERTENSION (4) Hyperlipidemia Current Visit: Yes Status: Chronic Assessment & Plan: - continue statin Code(s): E78.5 - HYPERLIPIDEMIA, UNSPECIFIED (5) History of dementia Current Visit: Yes Status: Chronic Assessment & Plan: - May have sundowners - Does not appear to have acute encephalopathy - Pt awake and alert today. - Pt will need placement currently has no place to live - psych consult d/t hx - Safey plan per psych - denies homicidal or suicidal ideation Code(s): Z86.59 - PERSONAL HISTORY OF OTHER MENTAL AND BEHAVIORAL DISORDERS - Discharge Discharge Date: 02/14/24 ([facility]) Disposition: XFER OTHER Condition: Stable Prescriptions: Continue Acetaminophen 325 mg [Tylenol 325 mg] 325 mg PO Q4H PRN PRN PRN Reason: Fever Rivaroxaban [Xarelto] 1 tab PO DAILY Diclofenac Sodium [Voltaren Arthritis Pain] 1 gm TP DAILY PRN PRN PRN Reason: Pain Calcium Carbonate [Tums] 500 mg PO Q4H PRN PRN PRN Reason: Stomach Upset Guaifenesin/Dextromethorphan [Siltussin Dm [place] 100-10Mg/5 ml] 10 ml PO Q6H PRN PRN PRN Reason: Cough Magnesium Hydroxide [Milk of Magnesia] 30 ml PO DAILY PRN PRN PRN Reason: Constipation lisinopriL [Lisinopril] 2.5 mg PO DAILY Insulin Glargine [Lantus Insulin] 9 unit SQ DAILY Glucagon 1 mg [GlucaGen 1 MG] 1 mg IJ ACHS PRN PRN Reason: Hypoglycemia Propylene Glycol/Peg 400 [Genteal Tears Severe Gel Drops] 1 drop Q6H PRN PRN PRN Reason: Allergies Docusate Sodium 1 tab PO BID Buspirone HCl 10 mg PO TID Atorvastatin Calcium 40 mg PO HS Insulin Lispro [Admelog Solostar] See Rx Instructions .ROUTE .COMPLEX ondansetron HCL [Zofran] 1 tab PO Q6HPRN PRN PRN Reason: Nausea/Vomiting Follow up with: DOCTOR,NO FAMILY [Primary Care Provider] -
[2024-02-14 08:05] LABS: ALBUMIN 2.7 g/dL (3.5-5.0); ANION GAP 5.8 MEQ/L (5-15); BILIRUBIN,TOTAL 0.3 mg/dL (0.2-1.3); Calcium 8.3 mg/dL (8.4-10.2); Creatinine 1 1.13 mg/dL (0.52-1.04); EST GLOMERULAR FILTRATION RATE 48.3 ML/MIN; Potassium 3.7 mmol/L (3.5-5.1); Total Protein 5.5 g/dL (6.3-8.2)
[2024-02-14 09:33] LABS: Slide Review YES
--- NOTE | 2024-02-14 15:53 | PCM.NOTE ---
Date and Time: 02/14/24 1551 Subjective Assessment: 02/13/24 83-year-old female history of dementia, diabetes type II, hyperlipidemia, COPD, GERD, anxiety, depression, OA and constipation. She brought to ER by a family friend for evaluation of generalized weakness and confusion on 02/12/24. Patient appeared confused and was not a reliable historian on admission. Most of info obtained was obtained from ER chart review on admission. In ER pt denied dysuria, flank pain, no chest pain or SO. She reported good PO intake, she told me that she does not like the facility as they were not giving her meds.She reporting ongoing back pain In ER her v/s were stable except BP was running towards higher side. All lab w/u essentially negative except Urine was + for t oo numerous WBC and LE +, CT HEAD unremarkable. Pt admitted for further care. Today pt is awake and alert. There was a 3 page letter on the chart from the family friend she had been living with. Apparently pt had lived at an [facility] and reported she was going to kill herself as the facility would not let her leave. Therefore, a friend picked her up and moved her in with his family. The family can no longer take care of her and dropped her off to the ER with a note asking for placement for her. Pt denies suicidal or suicidal ideation. Discussed note by friend with pt and that she can no longer live there. She is willing to go to a facility just not the same place she was at before. Psych consulted for further evaluation. Discussed case with case management. Urine culture is gram negative with sensitivity pending. She denies any further concerns at this time. 02/14/24 Pt sitting up in bed. She reports she feels fine. UA came bcak + for e-coli. Will continue OP antibiotics. Discussed UTI prevention. She is awaiting placement. Case management working on this. She did speak with [facility] provider yesterday, report reviewed, and they went over a safety plan with her. She denies suicidal ideation. She denies, CP, SOB, abd. pain, N/V/D. She triggered a level 2, therefore needs a state psych eval for placement. This process can take up to a week. She will most likely be here all weekened. - Review of Systems Constitutional: No Fever, No Chills Eyes: No Symptoms Ears, Nose, & Throat: No Symptoms Respiratory: No Cough, No Short Of Breath Cardiac: No Chest Pain, No Edema, No Syncope Abdominal/Gastrointestinal: No Abdominal Pain, No Nausea, No Vomiting, No Diarrhea Genitourinary Symptoms: No Dysuria Musculoskeletal: No Back Pain, No Neck Pain Skin: No Rash Neurological: No Dizziness, No Focal Weakness, No Sensory Changes Psychological: No Symptoms Endocrine: No Symptoms Hematologic/Lymphatic: No Symptoms Immunological/Allergic: No Symptoms Objective Exam General Appearance: no apparent distress, alert Neurologic Exam: alert, oriented x 3, cooperative, normal mood/affect, nml cerebellar function, sensation nml, No motor deficits Skin Exam: normal color, warm, dry Eye Exam: PERRL, EOMI, eyes nml inspection Ears, Nose, Throat Exam: normal ENT inspection, pharynx normal, moist mucous membranes Neck Exam: normal inspection, non-tender, supple, full range of motion Respiratory Exam: normal breath sounds, lungs clear, No respiratory distress Cardiovascular Exam: regular rate/rhythm, normal heart sounds Gastrointestinal/Abdomen Exam: soft, No tenderness, No mass Extremity Exam: normal inspection, normal range of motion Back Exam: normal inspection, normal range of motion, No CVA tenderness, No vertebral tenderness Pelvic Exam: deferred Rectal Exam: deferred Objective Data Vital Signs: Vital Signs - 24 hr Temp Pulse Resp BP Pulse Ox 02/14/24 11:39 97.3 F 60 20 152/66 98 02/14/24 08:00 97.4 F 82 16 138/63 96 02/14/24 04:00 97.7 F 67 18 141/66 96 02/13/24 23:58 97.9 F 68 18 147/97 96 02/13/24 20:00 97.2 F 60 18 172/71 98 02/13/24 16:00 97.6 F 64 17 181/72 98 Pain Assessment - Last Documented Pain Intensity 0 Intake and Output: Intake & Output 02/12/24 02/13/24 02/14/24 02/15/24 11:59 11:59 11:59 11:59 Intake Total 1034 3190 120 Balance 1034 3190 120 Weight 66.5 kg Lab Results: Lab Results-Last 24 Hours 02/13/24 02/13/24 02/14/24 Range/Units 17:02 21:36 06:40 WBC 6.7 (4.0-10.5) x10^3/uL RBC 4.13 (4.1-5.4) x10^6/uL Hgb 12.1 (12.0-16.0) g/dL Hct 37.3 (35-47) % MCV 90.3 (78-100) fL MCH 29.3 (26-32) pg MCHC 32.4 (32-36) g/dL RDW 14.3 H (11.5-14.0) % Plt Count 144 L (150-450) x10^3/uL MPV 11.2 H (7.5-11.0) fL Sodium (135-145) mmol/L Potassium (3.5-5.1) mmol/L Chloride (98-107) mmol/L Carbon Dioxide (22-30) mmol/L Anion Gap (5-15) MEQ/L BUN (7-17) mg/dL Creatinine (0.52-1.04) mg/dL Estimated GFR ML/MIN Glucose (74-106) mg/dL POC Glucometer 115 H 117 H (74 to 106) mg/dL Calcium (8.4-10.2) mg/dL Total Bilirubin (0.2-1.3) mg/dL AST (14-36) U/L ALT (0-35) U/L Alkaline Phosphatase (38-126) U/L Serum Total Protein (6.3-8.2) g/dL Albumin (3.5-5.0) g/dL Slides for Path Review YES 02/14/24 02/14/24 02/14/24 Range/Units 06:40 07:43 11:24 WBC (4.0-10.5) x10^3/uL RBC (4.1-5.4) x10^6/uL Hgb (12.0-16.0) g/dL Hct (35-47) % MCV (78-100) fL MCH (26-32) pg MCHC (32-36) g/dL RDW (11.5-14.0) % Plt Count (150-450) x10^3/uL MPV (7.5-11.0) fL Sodium 139 (135-145) mmol/L Potassium 3.7 (3.5-5.1) mmol/L Chloride 113 H (98-107) mmol/L Carbon Dioxide 23 (22-30) mmol/L Anion Gap 5.8 (5-15) MEQ/L BUN 20 H (7-17) mg/dL Creatinine 1.13 H (0.52-1.04) mg/dL Estimated GFR 48.3 ML/MIN Glucose 111 H (74-106) mg/dL POC Glucometer 115 H 145 H (74 to 106) mg/dL Calcium 8.3 L (8.4-10.2) mg/dL Total Bilirubin 0.30 (0.2-1.3) mg/dL AST 18 (14-36) U/L ALT 9 (0-35) U/L Alkaline Phosphatase 50 (38-126) U/L Serum Total Protein 5.5 L (6.3-8.2) g/dL Albumin 2.7 L (3.5-5.0) g/dL Slides for Path Review Radiology Exams: Radiology Procedures Category Date Time Status CHEST 1 VIEW (PORTABLE) Routine Exams 02/13/24 10:53 Completed HEAD WITHOUT CONTRAST [CT] Stat Exams 02/12/24 18:31 Completed Multi-Disciplinary Progress Notes: Multi-Disciplinary Progress Notes 02/14/24 13:10 Case Management Note by Lauren Fontenot from [facility] called and will be here tomorrow to evaluated patient. Initialized on 02/14/24 13:10 - END OF NOTE 02/14/24 12:05 (created 02/14/24 12:25) Case Management Note by Betty Childress LEVEL I AND LOC COMPLETED, TRIGGERED A LEVEL II ON SITE EVALUATION, NOT YET BEEN ASSIGNED. WILL FOLLOW Initialized on 02/14/24 12:25 - END OF NOTE 02/14/24 11:31 Case Management Note by Lauren Fontenot NO RESPONSE BACK FROM [facility] YET. CALLED [facility] AND SPOKE WITH STACY IN ADMISSIONS AND FAXED REFERRAL TO [facility]. WAITING ON RESPONSE BACK. Initialized on 02/14/24 11:31 - END OF NOTE 02/14/24 11:28 Case Management Note by Lauren Fontenot [facility] UNABLE TO ACCEPT PATIENT.SPOKE WITH [facility] AND REFERRAL FAXED TO [phone]. AWAITING RESPONSE BACK FROM [facility]. Initialized on 02/14/24 11:28 - END OF NOTE 02/13/24 19:32 OT Plan of Care Note by Murali(Blu#[id number]),Rosa OT Eval OT Inpatient Eval and POC Start: 02/12/24 21:34 Freq: ONCE Status: Complete Protocol: Created 02/12/24 21:44 SG (Rec: 02/12/24 21:44 SG -[id number]) Document 02/13/24 18:43 SALOME (Rec: 02/13/24 19:06 [facility]OME [id number]) OT Evaluation Subjective Patient is an 83 y/o female brought to this ED on 02/12/24 by friend's for evaluation of generalized weakness and confusion. Per ED report, patient is not a reliable historian and this also noted during OT Evaluation this date. Patient was living with a friend and his prior to being brought to ED, but is unable to return to that home and states this is because the 's mom will be having surgery and they will need to care for her. Patient reports that she has two daughters, Bela and Jennie, who both live in [place]. Patient states that she is agreeable to be discharged to a SNF, but ideally would like her own apartment and to renew her license so that she can purchase a car and take herself shopping. Pertinent Past Medical History DM-II, hyperlipidemia, COPD, GERD, anxiety, depression, OA, and constipation Prior Level of Function Per patient, she was performing all self-care tasks independently, but required assistance for transportation and was not performing cooking , cleaning, or outdoor chores. Comment Patient was residing with friend and his ; however, reports that she will not be returning there following discharge. Date 02/13/24 Comment Setup Comment Supervision/SBA with verbal cues for initiation Comment Supervision/SBA with verbal cues for initiation Comment Supervision/SBA with verbal cues for initiation Comment Supervision/SBA Comment Supervision/SBA with verbal cues for initiation Toilet Transfers WFL Comment SBA/CGA Functional Transfers WFL Comment SBA/CGA Range of Motion WFL Comment BUE Coordination BUE WFL Functional Strength BUE WFL Cognition Alert & Oriented x3 Patient is pleasant, cooperative, and answers questions appropriately with questionable safety awareness noted Pain Patient denied pain this date Objective Data/Standardized Assessment(s Juan Index of ADLs: 80/100, ) indicative of total independence with ADLs OT Plan Of Care Date of Evaluation 02/13/24 Treatment Diagnosis UTI, Confusion Precaution/Orders as written Eval & Treat Patient is Aware of Diagnosis and No Prognosis Patient is receptive to Plan of Care and No contributory towards OT goals Comment OTR coordinated with Nursing re: safety concerns and findings during evaluation. Therapuetic Interventions Evaluation Frequency/Duration Evaluation-Only Discharge Recommendations/Plan OTR recommends 24 hour care with supervision due to cognitive and safety awareness deficits impacting patient safety and ADL performance. 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 of insulin (3) HTN (hypertension) Current Visit: Yes Status: Chronic Code(s): I10 - ESSENTIAL (PRIMARY) HYPERTENSION (4) Hyperlipidemia Current Visit: Yes Status: Chronic Code(s): E78.5 - HYPERLIPIDEMIA, UNSPECIFIED (5) History of dementia Current Visit: Yes Status: Chronic Assessment & Plan: (1) UTI (urinary tract infection) Current Visit: Yes Status: Acute Assessment & Plan: - Ceftriaxoine IV - UC gram negative, e-coli - awake and alert today - IVF Code(s): N39.0 - URINARY TRACT INFECTION, SITE NOT SPECIFIED (2) Type II diabetes mellitus Current Visit: Yes Status: Chronic Qualifiers: Diabetes mellitus salvage determiner insulin use: with salvage determiner use Diabetes mellitus complication status: without complication Qualified Code(s): E11.9 - Type 2 diabetes mellitus without complications; Z79.4 - half-way (current) use of insulin Assessment & Plan: - Humalog s/s - Hold lantus for now - accucheck ac/hs - A1C 6.97- controlled - Lantus resumed (3) HTN (hypertension) Current Visit: Yes Status: Chronic Assessment & Plan: - controlled- continue home meds Code(s): I10 - ESSENTIAL (PRIMARY) HYPERTENSION (4) Hyperlipidemia Current Visit: Yes Status: Chronic Assessment & Plan: - continue statin Code(s): E78.5 - HYPERLIPIDEMIA, UNSPECIFIED (5) History of dementia Current Visit: Yes Status: Chronic Assessment & Plan: - May have sundowners - Does not appear to have acute encephalopathy - Pt awake and alert today. - Pt will need placement currently has no place to live - psych consult d/t hx - Safey plan per psych - denies homicidal or suicidal ideation VTE: Xarelto Next of KIN: daughter D/C plan: When Level 2 eval completed Code status: Full Code(s): Z86.59 - PERSONAL HISTORY OF OTHER MENTAL AND BEHAVIORAL DISORDERS
[2024-02-14] MEDS: MILK OF MAGNESIA 30 ML PO PRN (23:07)
--- NOTE | 2024-02-15 05:49 | PCM.NOTE ---
Date and Time: 02/15/24 0544 Subjective Assessment: 83 year old female admitted 02/12/24 with UTI -culture showing ECOLI after experiencing generalized weakness and confusion. Patient received IP treatment with ceftriaxone. Of note, There was a 3 page letter on the chart from the family friend she had been living with. Apparently pt had lived at an [facility] and r eported she was going to kill herself as the facility would not let her leave. Therefore, a friend picked her up and moved her in with his family. The family can no longer take care of her and dropped her off to the ER with a note asking for placement for her. Pt continues to deny suicidal or homicidal ideation. Discussed note by friend with pt and that she can no longer live there. She is awaiting placement. Case management working on this. 02/15/24: Met with patient bedside. No complaints today. Denies suicidal/homicidal ideation. CM working on placement. Labs and vitals are stable. Patient is medically stable for discharge when accepted to facility. Will continue ceftriaxone while IP. - Review of Systems Constitutional: No Symptoms Eyes: No Symptoms Ears, Nose, & Throat: No Symptoms Respiratory: No Symptoms Cardiac: No Symptoms Abdominal/Gastrointestinal: No Symptoms Genitourinary Symptoms: No Symptoms Musculoskeletal: No Symptoms Skin: No Symptoms Neurological: No Symptoms Psychological: No Symptoms Endocrine: No Symptoms Hematologic/Lymphatic: No Symptoms Immunological/Allergic: No Symptoms Objective Exam General Appearance: no apparent distress Neurologic Exam: alert, oriented x 3, cooperative Skin Exam: normal color Eye Exam: PERRL Ears, Nose, Throat Exam: moist mucous membranes Neck Exam: full range of motion Respiratory Exam: normal breath sounds, lungs clear Cardiovascular Exam: regular rate/rhythm, normal heart sounds Gastrointestinal/Abdomen Exam: soft, normal bowel sounds Extremity Exam: normal inspection Back Exam: normal inspection Pelvic Exam: deferred Rectal Exam: deferred Objective Data Vital Signs: Vital Signs - 24 hr Temp Pulse Resp BP Pulse Ox 02/15/24 03:00 98.3 F 73 17 162/67 99 02/14/24 23:00 98.7 F 66 17 157/68 98 02/14/24 19:00 98.7 F 60 16 149/64 99 02/14/24 18:45 99 02/14/24 15:00 97.3 F 64 20 194/78 97 02/14/24 11:39 97.3 F 60 20 152/66 98 02/14/24 08:00 97.4 F 82 16 138/63 96 Pain Assessment - Last Documented Pain Intensity 0 Intake and Output: Intake & Output 02/12/24 02/13/24 02/14/24 02/15/24 11:59 11:59 11:59 11:59 Intake Total 1034 3190 1080 Output Total 700 Balance 1034 3190 380 Weight 66.5 kg Lab Results: Lab Results-Last 24 Hours 02/14/24 02/14/24 02/14/24 Range/Units 06:40 06:40 07:43 WBC 6.7 (4.0-10.5) x10^3/uL RBC 4.13 (4.1-5.4) x10^6/uL Hgb 12.1 (12.0-16.0) g/dL Hct 37.3 (35-47) % MCV 90.3 (78-100) fL MCH 29.3 (26-32) pg MCHC 32.4 (32-36) g/dL RDW 14.3 H (11.5-14.0) % Plt Count 144 L (150-450) x10^3/uL MPV 11.2 H (7.5-11.0) fL Sodium 139 (135-145) mmol/L Potassium 3.7 (3.5-5.1) mmol/L Chloride 113 H (98-107) mmol/L Carbon Dioxide 23 (22-30) mmol/L Anion Gap 5.8 (5-15) MEQ/L BUN 20 H (7-17) mg/dL Creatinine 1.13 H (0.52-1.04) mg/dL Estimated GFR 48.3 ML/MIN Glucose 111 H (74-106) mg/dL POC Glucometer 115 H (74 to 106) mg/dL Calcium 8.3 L (8.4-10.2) mg/dL Total Bilirubin 0.30 (0.2-1.3) mg/dL AST 18 (14-36) U/L ALT 9 (0-35) U/L Alkaline Phosphatase 50 (38-126) U/L Serum Total Protein 5.5 L (6.3-8.2) g/dL Albumin 2.7 L (3.5-5.0) g/dL Slides for Path Review YES 02/14/24 02/14/24 02/14/24 Range/Units 11:24 16:27 21:26 WBC (4.0-10.5) x10^3/uL RBC (4.1-5.4) x10^6/uL Hgb (12.0-16.0) g/dL Hct (35-47) % MCV (78-100) fL MCH (26-32) pg MCHC (32-36) g/dL RDW (11.5-14.0) % Plt Count (150-450) x10^3/uL MPV (7.5-11.0) fL Sodium (135-145) mmol/L Potassium (3.5-5.1) mmol/L Chloride (98-107) mmol/L Carbon Dioxide (22-30) mmol/L Anion Gap (5-15) MEQ/L BUN (7-17) mg/dL Creatinine (0.52-1.04) mg/dL Estimated GFR ML/MIN Glucose (74-106) mg/dL POC Glucometer 145 H 147 H 149 H (74 to 106) mg/dL Calcium (8.4-10.2) mg/dL Total Bilirubin (0.2-1.3) mg/dL AST (14-36) U/L ALT (0-35) U/L Alkaline Phosphatase (38-126) U/L Serum Total Protein (6.3-8.2) g/dL Albumin (3.5-5.0) g/dL Slides for Path Review Radiology Exams: Radiology Procedures Category Date Time Status CHEST 1 VIEW (PORTABLE) Routine Exams 02/13/24 10:53 Completed Multi-Disciplinary Progress Notes: Multi-Disciplinary Progress Notes 02/14/24 13:10 Case Management Note by Lauren Fontenot from [facility] called and will be here tomorrow to evaluated patient. Initialized on 02/14/24 13:10 - END OF NOTE 02/14/24 12:05 (created 02/14/24 12:25) Case Management Note by Betty Childress LEVEL I AND LOC COMPLETED, TRIGGERED A LEVEL II ON SITE EVALUATION, NOT YET BEEN ASSIGNED. WILL FOLLOW Initialized on 02/14/24 12:25 - END OF NOTE 02/14/24 11:31 Case Management Note by Stepro,Lauren NO RESPONSE BACK FROM [facility] YET. CALLED [facility] AND SPOKE WITH STACY IN ADMISSIONS AND FAXED REFERRAL TO [facility]. WAITING ON RESPONSE BACK. Initialized on 02/14/24 11:31 - END OF NOTE 02/14/24 11:28 Case Management Note by Lauren Fontenot [facility] UNABLE TO ACCEPT PATIENT.SPOKE WITH [facility] AND REFERRAL FAXED TO [phone]. AWAITING RESPONSE BACK FROM [facility]. Initialized on 02/14/24 11:28 - END OF NOTE Assessment/Plan (1) UTI (urinary tract infection) Current Visit: Yes Status: Acute Assessment & Plan: -UC with Ecoli, continue IV ceftriaxone -D/C fluids Code(s): N39.0 - URINARY TRACT INFECTION, SITE NOT SPECIFIED (2) HTN (hypertension) Current Visit: Yes Status: Chronic Assessment & Plan: -stable, continue home meds Code(s): I10 - ESSENTIAL (PRIMARY) HYPERTENSION (3) History of dementia Current Visit: Yes Status: Chronic Assessment & Plan: -Placement pending, unable to return to current residence as noted above -Safety plan discussed with patient per psych consult -denies homicidal/suicidal ideations Code(s): Z86.59 - PERSONAL HISTORY OF OTHER MENTAL AND BEHAVIORAL DISORDERS (4) Hyperlipidemia Current Visit: Yes Status: Chronic Code(s): E78.5 - HYPERLIPIDEMIA, UNSPECIFIED (5) Type II diabetes mellitus Current Visit: Yes Status: Chronic Qualifiers: Diabetes mellitus [facility]cfp insulin use: with [facility]p use Diabetes mellitus complication status: without complication Qualified Code(s): E11.9 - Type 2 diabetes mellitus without complications; 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
[2024-02-15 06:57] LABS: BASOPHIL % 0.8 % (0.0-0.4); Basophil (Absolute #) 0.05 x10^3/uL (0-0.4); Eosinophil % 3.7 % (0.00-5.0); Eosinophil (Absolute #) 0.24 x10^3/uL (0-0.5); Hematocrit 41.5 % (35-47); Hemoglobin 13.4 g/dL (12.0-16.0); IMMATURE GRAN # 0.01 x10^3u/L (0.00-0.03); IMMATURE GRAN % 0.2 % (0.00-0.4); Lymphocyte (Absolute #) 2.51 x10^3/uL (1.0-4.6); Lymphocytes % 38.3 % (24.0-44.0); Mean Corpuscular Hemoglobin 29.1 pg (26-32); Mean Corpuscular Hgb Concent. 32.3 g/dL (32-36); Mean Platelet Volume 11.5 fL (7.5-11.0); Monocyte (Absolute #) 0.45 x10^3/uL (0.0-1.3); Monocytes % 6.9 % (0.0-12.0); Neutrophil % 50.1 % (36.0-66.0); Platelet Count 168 x10^3/uL (150-450); Red Blood Count 4.61 x10^6/uL (4.1-5.4); Red Cell Distribution Width 14.4 % (11.5-14.0); White Blood Count 6.6 x10^3/uL (4.0-10.5)
[2024-02-15 07:11] LABS: ALBUMIN 3.4 g/dL (3.5-5.0); ANION GAP 8.9 MEQ/L (5-15); BILIRUBIN,TOTAL 0.4 mg/dL (0.2-1.3); Calcium 8.9 mg/dL (8.4-10.2); Creatinine 1 1.2 mg/dL (0.52-1.04); EST GLOMERULAR FILTRATION RATE 44.9 ML/MIN; Potassium 3.8 mmol/L (3.5-5.1); Total Protein 6.7 g/dL (6.3-8.2)
[2024-02-15] MEDS: Zofran 4 MG/2 ML VIAL IV PRN (22:37)
--- NOTE | 2024-02-16 06:22 | PCM.NOTE ---
Date and Time: 02/16/24 06 Subjective Assessment: 83 year old female admitted 02/12/24 with UTI -culture showing ECOLI after experiencing generalized weakness and confusion. Patient received IP treatment with ceftriaxone. Of note, There was a 3 page letter on the chart from the family friend she had been living with. Apparently pt had lived at an [facility] and reported she was going to kill herself as the facility would not let her leave. Therefore, a friend picked her up and moved her in with his family. The family can no longer take care of her and dropped her off to the ER with a note asking for placement for her. Pt continues to deny suicidal or homicidal ideation. Discussed note by friend with pt and that she can no longer live there. She is awaiting placement. Case management working on this. 02/15/24: Met with patient bedside. No complaints today. Denies suicidal/homicidal ideation. CM working on placement. Labs and vitals are stable. Patient is medically stable for discharge when accepted to facility. Will continue ceftriaxone while IP. 02/16/24: Met with patient bedside. Endorses that she is feeling helpless that she is so far away from family and now needs to reside at a nursing facility. Denies suicidal/homicidal ideation. Patient requesting to go to sikhism, will inquire if there are sign language teacher services available. In the meantime patient was agreeable to listening to services on the radio. Placement is pending, most likely Sunday before she will discharge. Denies hematuria, dysuria, fever, nausea, vomiting, CP,SOB, cough, or diarrhea. - Review of Systems Constitutional: No Symptoms Eyes: No Symptoms Ears, Nose, & Throat: No Symptoms Respiratory: No Symptoms Cardiac: No Symptoms Abdominal/Gastrointestinal: No Symptoms Genitourinary Symptoms: No Symptoms Musculoskeletal: No Symptoms Skin: No Symptoms Neurological: Irritability Psychological: Depression Endocrine: No Symptoms Hematologic/Lymphatic: No Symptoms Immunological/Allergic: No Symptoms Objective Exam General Appearance: no apparent distress Neurologic Exam: alert, oriented x 3, cooperative Skin Exam: normal color Eye Exam: PERRL Ears, Nose, Throat Exam: moist mucous membranes Neck Exam: normal inspection, full range of motion Respiratory Exam: normal breath sounds, lungs clear Cardiovascular Exam: regular rate/rhythm, normal heart sounds Gastrointestinal/Abdomen Exam: soft, normal bowel sounds Extremity Exam: normal inspection Back Exam: normal inspection, normal range of motion Pelvic Exam: deferred Rectal Exam: deferred Objective Data Vital Signs: Vital Signs - 24 hr Temp Pulse Resp BP Pulse Ox 02/16/24 03:00 98.4 F 60 16 154/65 96 02/15/24 23:00 97.7 F 58 L 16 144/67 96 02/15/24 19:00 98.6 F 77 17 141/67 98 02/15/24 15:00 98 F 64 19 100/64 99 02/15/24 11:00 97.4 F 62 14 143/64 98 02/15/24 06:54 97.7 F 72 19 140/91 99 Pain Assessment - Last Documented Pain Intensity 0 Intake and Output: Intake & Output 02/13/24 02/14/24 02/15/24 02/16/24 11:59 11:59 11:59 11:59 Intake Total 1034 3190 1560 964 Output Total 700 Balance 1034 3190 860 964 Weight 66.5 kg Lab Results: Lab Results-Last 24 Hours 02/15/24 02/15/24 02/15/24 Range/Units 06:20 06:48 06:48 WBC 6.6 (4.0-10.5) x10^3/uL RBC 4.61 (4.1-5.4) x10^6/uL Hgb 13.4 (12.0-16.0) g/dL Hct 41.5 (35-47) % MCV 90.0 (78-100) fL MCH 29.1 (26-32) pg MCHC 32.3 (32-36) g/dL RDW 14.4 H (11.5-14.0) % Plt Count 168 (150-450) x10^3/uL MPV 11.5 H (7.5-11.0) fL Gran % 50.1 (36.0-66.0) % Immature Gran % (Auto) 0.2 (0.00-0.4) % Nucleat RBC Rel Count 0.0 (0.00-0.1) % Eos # (Auto) 0.24 (0-0.5) x10^3/uL Immature Gran # (Auto) 0.01 (0.00-0.03) x10^3u/L Absolute Lymphs (auto) 2.51 (1.0-4.6) x10^3/uL Absolute Monos (auto) 0.45 (0.0-1.3) x10^3/uL Absolute Nucleated RBC 0.00 (0.00-0.01) x10^3u/L Lymphocytes % 38.3 (24.0-44.0) % Monocytes % 6.9 (0.0-12.0) % Eosinophils % 3.7 (0.00-5.0) % Basophils % 0.8 (0.0-0.4) % Absolute Granulocytes 3.30 (1.4-6.9) x10^3/uL Basophils # 0.05 (0-0.4) x10^3/uL Sodium 140 (135-145) mmol/L Potassium 3.8 (3.5-5.1) mmol/L Chloride 110 H (98-107) mmol/L Carbon Dioxide 25 (22-30) mmol/L Anion Gap 8.9 (5-15) MEQ/L BUN 23 H (7-17) mg/dL Creatinine 1.20 H (0.52-1.04) mg/dL Estimated GFR 44.9 ML/MIN Glucose 134 H (74-106) mg/dL POC Glucometer 134 H (74 to 106) mg/dL Calcium 8.9 (8.4-10.2) mg/dL Total Bilirubin 0.40 (0.2-1.3) mg/dL AST 28 (14-36) U/L ALT 15 (0-35) U/L Alkaline Phosphatase 70 (38-126) U/L Serum Total Protein 6.7 (6.3-8.2) g/dL Albumin 3.4 L (3.5-5.0) g/dL 02/15/24 02/15/24 02/15/24 Range/Units 11:11 16:57 20:58 WBC (4.0-10.5) x10^3/uL RBC (4.1-5.4) x10^6/uL Hgb (12.0-16.0) g/dL Hct (35-47) % MCV (78-100) fL MCH (26-32) pg MCHC (32-36) g/dL RDW (11.5-14.0) % Plt Count (150-450) x10^3/uL MPV (7.5-11.0) fL Gran % (36.0-66.0) % Immature Gran % (Auto) (0.00-0.4) % Nucleat RBC Rel Count (0.00-0.1) % Eos # (Auto) (0-0.5) x10^3/uL Immature Gran # (Auto) (0.00-0.03) x10^3u/L Absolute Lymphs (auto) (1.0-4.6) x10^3/uL Absolute Monos (auto) (0.0-1.3) x10^3/uL Absolute Nucleated RBC (0.00-0.01) x10^3u/L Lymphocytes % (24.0-44.0) % Monocytes % (0.0-12.0) % Eosinophils % (0.00-5.0) % Basophils % (0.0-0.4) % Absolute Granulocytes (1.4-6.9) x10^3/uL Basophils # (0-0.4) x10^3/uL Sodium (135-145) mmol/L Potassium (3.5-5.1) mmol/L Chloride (98-107) mmol/L Carbon Dioxide (22-30) mmol/L Anion Gap (5-15) MEQ/L BUN (7-17) mg/dL Creatinine (0.52-1.04) mg/dL Estimated GFR ML/MIN Glucose (74-106) mg/dL POC Glucometer 160 H 98 119 H (74 to 106) mg/dL Calcium (8.4-10.2) mg/dL Total Bilirubin (0.2-1.3) mg/dL AST (14-36) U/L ALT (0-35) U/L Alkaline Phosphatase (38-126) U/L Serum Total Protein (6.3-8.2) g/dL Albumin (3.5-5.0) g/dL 02/15/24 Range/Units 20:58 WBC (4.0-10.5) x10^3/uL RBC (4.1-5.4) x10^6/uL Hgb (12.0-16.0) g/dL Hct (35-47) % MCV (78-100) fL MCH (26-32) pg MCHC (32-36) g/dL RDW (11.5-14.0) % Plt Count (150-450) x10^3/uL MPV (7.5-11.0) fL Gran % (36.0-66.0) % Immature Gran % (Auto) (0.00-0.4) % Nucleat RBC Rel Count (0.00-0.1) % Eos # (Auto) (0-0.5) x10^3/uL Immature Gran # (Auto) (0.00-0.03) x10^3u/L Absolute Lymphs (auto) (1.0-4.6) x10^3/uL Absolute Monos (auto) (0.0-1.3) x10^3/uL Absolute Nucleated RBC (0.00-0.01) x10^3u/L Lymphocytes % (24.0-44.0) % Monocytes % (0.0-12.0) % Eosinophils % (0.00-5.0) % Basophils % (0.0-0.4) % Absolute Granulocytes (1.4-6.9) x10^3/uL Basophils # (0-0.4) x10^3/uL Sodium (135-145) mmol/L Potassium (3.5-5.1) mmol/L Chloride (98-107) mmol/L Carbon Dioxide (22-30) mmol/L Anion Gap (5-15) MEQ/L BUN (7-17) mg/dL Creatinine (0.52-1.04) mg/dL Estimated GFR ML/MIN Glucose (74-106) mg/dL POC Glucometer 119 H (74 to 106) mg/dL Calcium (8.4-10.2) mg/dL Total Bilirubin (0.2-1.3) mg/dL AST (14-36) U/L ALT (0-35) U/L Alkaline Phosphatase (38-126) U/L Serum Total Protein (6.3-8.2) g/dL Albumin (3.5-5.0) g/dL Multi-Disciplinary Progress Notes: Multi-Disciplinary Progress Notes 02/15/24 14:17 Case Management Note by Lauren Fontenot SPOKE WITH STACY FROM [facility] AND SHE STATED THAT THEY WILL AC CEPT PATIENT ONCE LEVEL 2 IS COMPLETE. CONTACT STACY AT [phone] TO INFORM. Initialized on 02/15/24 14:17 - END OF NOTE 02/15/24 11:59 Case Management Note by Lauren Fontenot LEVEL 2 REVIEWER, MARLON CHEN, WAS HERE THIS AM AT 7AM TO EVALUATE PATIENT. STILL AWAITING RESULTS. S/W PATIENT. SHE IS STILL AGREEABLE TO GOITN TO A FACILITY IN [place] WHEN ACCEPTED AND LEVEL 2 RESOLVED. Initialized on 02/15/24 11:59 - END OF NOTE Assessment/Plan (1) UTI (urinary tract infection) Current Visit: Yes Status: Acute Assessment & Plan: -UC with Ecoli, continue IV ceftriaxone -D/C fluids Code(s): N39.0 - URINARY TRACT INFECTION, SITE NOT SPECIFIED (2) HTN (hypertension) Current Visit: Yes Status: Chronic Assessment & Plan: -stable, continue home meds Code(s): I10 - ESSENTIAL (PRIMARY) HYPERTENSION (3) History of dementia Current Visit: Yes Status: Chronic Assessment & Plan: -Placement pending, unable to return to current residence as noted above -Safety plan discussed with patient per psych consult -denies homicidal/suicidal ideations -discharge most likely on Sunday Code(s): Z86.59 - PERSONAL HISTORY OF OTHER MENTAL AND BEHAVIORAL DISORDERS (4) Hyperlipidemia Current Visit: Yes Status: Chronic Code(s): E78.5 - HYPERLIPIDEMIA, UNSPECIFIED -continue statin (5) Type II diabetes mellitus Current Visit: Yes Status: Chronic Qualifiers: Diabetes mellitus computer terminal operator insulin use: with computer terminal operator use Diabetes mellitus complication status: without complication Qualified Code(s): E11.9 - Type 2 diabetes mellitus without complications; Z79.4 - care home (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 Code(s): N39.0 - URINARY TRACT INFECTION, SITE NOT SPECIFIED (2) HTN (hypertension) Current Visit: Yes Status: Chronic Code(s): I10 - ESSENTIAL (PRIMARY) HYPERTENSION (3) History of dementia Current Visit: Yes Status: Chronic Code(s): Z86.59 - PERSONAL HISTORY OF OTHER MENTAL AND BEHAVIORAL DISORDERS (4) Hyperlipidemia Current Visit: Yes Status: Chronic Code(s): E78.5 - HYPERLIPIDEMIA, UNSPECIFIED (5) Type II diabetes mellitus Current Visit: Yes Status: Chronic Qualifiers: Diabetes mellitus shelter insulin use: with computer terminal operator use Diabetes mellitus complication status: without complication Qualified Code(s): E11.9 - Type 2 diabetes mellitus without complications; Z79.4 - care home (current) use of insulin
[2024-02-16 08:14] LABS: Absolute Neutrophil Ct (ANC) 3.37 x10^3/uL (1.4-6.9); BASOPHIL % 0.8 % (0.0-0.4); Basophil (Absolute #) 0.06 x10^3/uL (0-0.4); Eosinophil (Absolute #) 0.21 x10^3/uL (0-0.5); Hematocrit 41.6 % (35-47); Hemoglobin 13.6 g/dL (12.0-16.0); IMMATURE GRAN # 0.01 x10^3u/L (0.00-0.03); IMMATURE GRAN % 0.1 % (0.00-0.4); Lymphocyte (Absolute #) 2.94 x10^3/uL (1.0-4.6); Lymphocytes % 41.4 % (24.0-44.0); Mean Cell Volume 89.3 fL (78-100); Mean Corpuscular Hemoglobin 29.2 pg (26-32); Mean Corpuscular Hgb Concent. 32.7 g/dL (32-36); Mean Platelet Volume 11.5 fL (7.5-11.0); Monocyte (Absolute #) 0.51 x10^3/uL (0.0-1.3); Monocytes % 7.2 % (0.0-12.0); Neutrophil % 47.5 % (36.0-66.0); Platelet Count 165 x10^3/uL (150-450); Red Blood Count 4.66 x10^6/uL (4.1-5.4); Red Cell Distribution Width 14.4 % (11.5-14.0); White Blood Count 7.1 x10^3/uL (4.0-10.5)
[2024-02-16 08:28] LABS: ALBUMIN 3.5 g/dL (3.5-5.0); ANION GAP 8.7 MEQ/L (5-15); BILIRUBIN,TOTAL 0.4 mg/dL (0.2-1.3); Creatinine 1 1.31 mg/dL (0.52-1.04); EST GLOMERULAR FILTRATION RATE 40.4 ML/MIN; Potassium 4.2 mmol/L (3.5-5.1); Total Protein 6.8 g/dL (6.3-8.2)
[2024-02-17 05:53] LABS: Absolute Neutrophil Ct (ANC) 2.82 x10^3/uL (1.4-6.9); BASOPHIL % 1.1 % (0.0-0.4); Basophil (Absolute #) 0.07 x10^3/uL (0-0.4); Eosinophil % 3.5 % (0.00-5.0); Eosinophil (Absolute #) 0.22 x10^3/uL (0-0.5); Hematocrit 43.2 % (35-47); Hemoglobin 13.8 g/dL (12.0-16.0); Lymphocyte (Absolute #) 2.64 x10^3/uL (1.0-4.6); Lymphocytes % 42.3 % (24.0-44.0); Mean Cell Volume 91.5 fL (78-100); Mean Corpuscular Hemoglobin 29.2 pg (26-32); Mean Corpuscular Hgb Concent. 31.9 g/dL (32-36); Mean Platelet Volume 11.6 fL (7.5-11.0); Monocyte (Absolute #) 0.49 x10^3/uL (0.0-1.3); Monocytes % 7.9 % (0.0-12.0); Neutrophil % 45.2 % (36.0-66.0); Platelet Count 178 x10^3/uL (150-450); Red Blood Count 4.72 x10^6/uL (4.1-5.4); Red Cell Distribution Width 14.5 % (11.5-14.0); White Blood Count 6.2 x10^3/uL (4.0-10.5)
[2024-02-17 05:59] LABS: ALBUMIN 3.5 g/dL (3.5-5.0); ANION GAP 9.1 MEQ/L (5-15); BILIRUBIN,TOTAL 0.3 mg/dL (0.2-1.3); Creatinine 1 1.21 mg/dL (0.52-1.04); EST GLOMERULAR FILTRATION RATE 44.5 ML/MIN; Potassium 3.9 mmol/L (3.5-5.1); Total Protein 6.8 g/dL (6.3-8.2)
--- NOTE | 2024-02-17 09:54 | PCM.NOTE ---
Date and Time: 02/17/24 0949 Subjective Assessment: 83 year old female admitted 02/12/24 with UTI -culture showing ECOLI after experiencing generalized weakness and confusion. Patient received IP treatment with ceftriaxone. Of note, There was a 3 page letter on the chart from the family friend she had been living with. Apparently pt had lived at an [facility] and r eported she was going to kill herself as the facility would not let her leave. Therefore, a friend picked her up and moved her in with his family. The family can no longer take care of her and dropped her off to the ER with a note asking for placement for her. Pt continues to deny suicidal or homicidal ideation. Discussed note by friend with pt and that she can no longer live there. She is awaiting placement. Case management working on this. 02/15/24: Met with patient bedside. No complaints today. Denies suicidal/homicidal ideation. CM working on placement. Labs and vitals are stable. Patient is medically stable for discharge when accepted to facility. Will continue ceftriaxone while IP. 02/16/24: Met with patient bedside. Endorses that she is feeling helpless that she is so far away from family and now needs to reside at a nursing facility. Denies suicidal/homicidal ideation. Patient requesting to go to congregational, will inquire if there are video control engineer services available. In the meantime patient was agreeable to listening to services on the radio. Placement is pending, most likely Sunday before she will discharge. Denies hematuria, dysuria, fever, nausea, vomiting, CP,SOB, cough, or diarrhea. 02/17/24: No overnight events noted. Patient states she is feeling much better today since being able to listen to gospel services on the radio. Denies hematuria, dysuria, fever, nausea, vomiting, CP,SOB, cough, or diarrhea. Placement pending. Will discontinue IV abx today. - Review of Systems Constitutional: No Symptoms Eyes: No Symptoms Ears, Nose, & Throat: No Symptoms Respiratory: No Symptoms Cardiac: No Symptoms Abdominal/Gastrointestinal: No Symptoms Genitourinary Symptoms: No Symptoms Musculoskeletal: No Symptoms Skin: No Symptoms Neurological: No Symptoms Psychological: Depression Endocrine: No Symptoms Hematologic/Lymphatic: No Symptoms Immunological/Allergic: No Symptoms Objective Exam General Appearance: no apparent distress Neurologic Exam: alert, oriented x 3, cooperative Skin Exam: normal color Eye Exam: PERRL Ears, Nose, Throat Exam: moist mucous membranes Neck Exam: normal inspection Respiratory Exam: normal breath sounds, lungs clear Cardiovascular Exam: regular rate/rhythm, normal heart sounds Gastrointestinal/Abdomen Exam: soft, normal bowel sounds Extremity Exam: normal inspection Back Exam: normal inspection Pelvic Exam: deferred Rectal Exam: deferred Objective Data Vital Signs: Vital Signs - 24 hr Temp Pulse Resp BP Pulse Ox 02/17/24 08:00 97.5 F 58 L 18 150/66 99 02/17/24 04:00 97.6 F 61 16 148/64 99 02/17/24 00:00 64 16 98 02/16/24 19:48 97.5 F 62 16 136/101 99 02/16/24 16:24 97.9 F 70 16 159/71 96 02/16/24 11:00 98.1 F 70 14 169/72 97 Pain Assessment - Last Documented Pain Intensity 0 Intake and Output: Intake & Output 02/14/24 02/15/24 02/16/24 02/17/24 11:59 11:59 11:59 11:59 Intake Total 3190 1560 1564 1180 Output Total 700 Balance 3190 860 1564 1180 Lab Results: Lab Results-Last 24 Hours 02/16/24 02/16/24 02/16/24 Range/Units 11:09 16:18 21:03 WBC (4.0-10.5) x10^3/uL RBC (4.1-5.4) x10^6/uL Hgb (12.0-16.0) g/dL Hct (35-47) % MCV (78-100) fL MCH (26-32) pg MCHC (32-36) g/dL RDW (11.5-14.0) % Plt Count (150-450) x10^3/uL MPV (7.5-11.0) fL Gran % (36.0-66.0) % Immature Gran % (Auto) (0.00-0.4) % Nucleat RBC Rel Count (0.00-0.1) % Eos # (Auto) (0-0.5) x10^3/uL Immature Gran # (Auto) (0.00-0.03) x10^3u/L Absolute Lymphs (auto) (1.0-4.6) x10^3/uL Absolute Monos (auto) (0.0-1.3) x10^3/uL Absolute Nucleated RBC (0.00-0.01) x10^3u/L Lymphocytes % (24.0-44.0) % Monocytes % (0.0-12.0) % Eosinophils % (0.00-5.0) % Basophils % (0.0-0.4) % Absolute Granulocytes (1.4-6.9) x10^3/uL Basophils # (0-0.4) x10^3/uL Sodium (135-145) mmol/L Potassium (3.5-5.1) mmol/L Chloride (98-107) mmol/L Carbon Dioxide (22-30) mmol/L Anion Gap (5-15) MEQ/L BUN (7-17) mg/dL Creatinine (0.52-1.04) mg/dL Estimated GFR ML/MIN Glucose (74-106) mg/dL POC Glucometer 206 H 99 71 L (74 to 106) mg/dL Calcium (8.4-10.2) mg/dL Total Bilirubin (0.2-1.3) mg/dL AST (14-36) U/L ALT (0-35) U/L Alkaline Phosphatase (38-126) U/L Serum Total Protein (6.3-8.2) g/dL Albumin (3.5-5.0) g/dL 02/17/24 02/17/24 02/17/24 Range/Units 05:35 05:35 08:12 WBC 6.2 (4.0-10.5) x10^3/uL RBC 4.72 (4.1-5.4) x10^6/uL Hgb 13.8 (12.0-16.0) g/dL Hct 43.2 (35-47) % MCV 91.5 (78-100) fL MCH 29.2 (26-32) pg MCHC 31.9 L (32-36) g/dL RDW 14.5 H (11.5-14.0) % Plt Count 178 (150-450) x10^3/uL MPV 11.6 H (7.5-11.0) fL Gran % 45.2 (36.0-66.0) % Immature Gran % (Auto) 0.0 (0.00-0.4) % Nucleat RBC Rel Count 0.0 (0.00-0.1) % Eos # (Auto) 0.22 (0-0.5) x10^3/uL Immature Gran # (Auto) 0.00 (0.00-0.03) x10^3u/L Absolute Lymphs (auto) 2.64 (1.0-4.6) x10^3/uL Absolute Monos (auto) 0.49 (0.0-1.3) x10^3/uL Absolute Nucleated RBC 0.00 (0.00-0.01) x10^3u/L Lymphocytes % 42.3 (24.0-44.0) % Monocytes % 7.9 (0.0-12.0) % Eosinophils % 3.5 (0.00-5.0) % Basophils % 1.1 (0.0-0.4) % Absolute Granulocytes 2.82 (1.4-6.9) x10^3/uL Basophils # 0.07 (0-0.4) x10^3/uL Sodium 138 (135-145) mmol/L Potassium 3.9 (3.5-5.1) mmol/L Chloride 107 (98-107) mmol/L Carbon Dioxide 26 (22-30) mmol/L Anion Gap 9.1 (5-15) MEQ/L BUN 27 H (7-17) mg/dL Creatinine 1.21 H (0.52-1.04) mg/dL Estimated GFR 44.5 ML/MIN Glucose 135 H (74-106) mg/dL POC Glucometer 125 H (74 to 106) mg/dL Calcium 9.0 (8.4-10.2) mg/dL Total Bilirubin 0.30 (0.2-1.3) mg/dL AST 22 (14-36) U/L ALT 13 (0-35) U/L Alkaline Phosphatase 67 (38-126) U/L Serum Total Protein 6.8 (6.3-8.2) g/dL Albumin 3.5 (3.5-5.0) g/dL Assessment/Plan (1) UTI (urinary tract infection) Current Visit: Yes Status: Acute Assessment & Plan: -UC with Ecoli, continue IV ceftriaxone -D/C fluids 02/16: -Discontinue Ceftriaxone, patient has finished course Code(s): N39.0 - URINARY TRACT INFECTION, SITE NOT SPECIFIED (2) HTN (hypertension) Current Visit: Yes Status: Chronic Assessment & Plan: -stable, continue home meds Code(s): I10 - ESSENTIAL (PRIMARY) HYPERTENSION (3) History of dementia Current Visit: Yes Status: Chronic Assessment & Plan: -Placement pending, unable to return to current residence as noted above -Safety plan discussed with patient per psych consult -denies homicidal/suicidal ideations -discharge most likely on Sunday Code(s): Z86.59 - PERSONAL HISTORY OF OTHER MENTAL AND BEHAVIORAL DISORDERS (4) Hyperlipidemia Current Visit: Yes Status: Chronic Code(s): E78.5 - HYPERLIPIDEMIA, UNSPECIFIED -continue statin (5) Type II diabetes mellitus Current Visit: Yes Status: Chronic Qualifiers: Diabetes mellitus car deliverer insulin use: with fci use Diabetes mellitus complication status: without complication Qualified Code(s): E11.9 - Type 2 diabetes mellitus without complications; Z79.4 - patient services rep (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 Code(s): N39.0 - URINARY TRACT INFECTION, SITE NOT SPECIFIED (2) HTN (hypertension) Current Visit: Yes Status: Chronic Code(s): I10 - ESSENTIAL (PRIMARY) HYPERTENSION (3) History of dementia Current Visit: Yes Status: Chronic Code(s): Z86.59 - PERSONAL HISTORY OF OTHER MENTAL AND BEHAVIORAL DISORDERS (4) Hyperlipidemia Current Visit: Yes Status: Chronic Code(s): E78.5 - HYPERLIPIDEMIA, UNSPECIFIED (5) Type II diabetes mellitus Current Visit: Yes Status: Chronic Qualifiers: Diabetes mellitus fci insulin use: with car deliverer use Diabetes mellitus complication status: without complication Qualified Code(s): E11.9 - Type 2 diabetes mellitus without complications; Z79.4 - patient services rep (current) use of insulin
--- NOTE | 2024-02-18 16:01 | PCM.NOTE ---
Date and Time: 02/18/24 1556 Subjective Assessment: 83 year old female admitted 02/12/24 with UTI -culture showing ECOLI after experiencing generalized weakness and confusion. Patient received IP treatment with ceftriaxone and has completed course. Of note, There was a 3 page letter on the chart from the family friend she had been living with. Apparently pt had lived at an [facility] and reported she was going to kill herself as the facility would not let her leave. Therefore, a friend picked her up and moved her in with his family. The family can no longer take care of her and dropped her off to the ER with a note asking for placement for her. Pt continues to deny suicidal or homicidal ideation. Discussed note by friend with pt and that she can no longer live there. She is awaiting placement. Case management working on this. 02/18/24: Met with patient bedside. No overnight events noted. Denies suicidal/homicidal ideation. She is refusing labs this morning. Placement is pending. Denies fever,cough, sob, cp, abdominal pain, MESA, dizziness, N/V/D. - Review of Systems Constitutional: No Symptoms Eyes: No Symptoms Ears, Nose, & Throat: No Symptoms Respiratory: No Symptoms Cardiac: No Symptoms Abdominal/Gastrointestinal: No Symptoms Genitourinary Symptoms: No Symptoms Musculoskeletal: No Symptoms Skin: No Symptoms Neurological: No Symptoms Psychological: No Symptoms Endocrine: No Symptoms Hematologic/Lymphatic: No Symptoms Immunological/Allergic: No Symptoms Objective Exam General Appearance: no apparent distress Neurologic Exam: alert, oriented x 3, cooperative, normal mood/affect, nml cerebellar function, sensation nml, No motor deficits Skin Exam: normal color Eye Exam: PERRL Ears, Nose, Throat Exam: normal ENT inspection Neck Exam: normal inspection Respiratory Exam: normal breath sounds Cardiovascular Exam: regular rate/rhythm, normal heart sounds Gastrointestinal/Abdomen Exam: soft, normal bowel sounds Extremity Exam: normal inspection Back Exam: normal inspection Pelvic Exam: deferred Rectal Exam: deferred Objective Data Vital Signs: Vital Signs - 24 hr Temp Pulse Resp BP Pulse Ox 02/18/24 11:25 97.3 F 70 16 129/80 97 02/18/24 07:24 97.7 F 78 16 138/65 99 02/18/24 04:00 98.3 F 73 19 143/62 95 02/17/24 23:58 98.3 F 61 17 146/65 98 05/12/24 20:00 99.0 F 71 18 137/62 96 02/17/24 16:00 97.7 F 70 18 151/68 94 L Pain Assessment - Last Documented Pain Intensity 0 Intake and Output: Intake & Output 02/16/24 02/17/24 02/18/24 02/19/24 11:59 11:59 11:59 11:59 Intake Total 1564 1420 1200 240 Balance 1564 1420 1200 240 Lab Results: Lab Results-Last 24 Hours 02/17/24 02/17/24 02/18/24 Range/Units 16:19 20:42 07:14 POC Glucometer 110 H 130 H 129 H (74 to 106) mg/dL 02/18/24 Range/Units 11:13 POC Glucometer 171 H (74 to 106) mg/dL Multi-Disciplinary Progress Notes: Multi-Disciplinary Progress Notes 02/18/24 10:30 Case Management Note by Naty Willett Addendum entered by Naty Willett 02/18/24 13:12: MICKI ALSO CAME TO ASSESS PATIENT TODAY Addendum entered by Naty Willett 02/18/24 10:31: LEVEL II STILL PENDING AT THIS TIME Original Note: PATIENT A&O X 3- SHE CONTINUES TO PLAN TO TRANSITION TO [facility] WHEN LEVEL II IS COMPLETE Initialized on 02/18/24 10:30 - END OF NOTE Assessment/Plan (1) UTI (urinary tract infection) Current Visit: Yes Status: Acute Assessment & Plan: -UC with Ecoli, continue IV ceftriaxone -D/C fluids 02/16: -Discontinue Ceftriaxone, patient has finished course Code(s): N39.0 - URINARY TRACT INFECTION, SITE NOT SPECIFIED (2) HTN (hypertension) Current Visit: Yes Status: Chronic Assessment & Plan: -stable, continue home meds Code(s): I10 - ESSENTIAL (PRIMARY) HYPERTENSION (3) History of dementia Current Visit: Yes Status: Chronic Assessment & Plan: -Placement pending, unable to return to current residence as noted above -Safety plan discussed with patient per psych consult -denies homicidal/suicidal ideations -discharge most likely on Saturday 02/17: -Placement pending Code(s): Z86.59 - PERSONAL HISTORY OF OTHER MENTAL AND BEHAVIORAL DISORDERS (4) Hyperlipidemia Current Visit: Yes Status: Chronic Code(s): E78.5 - HYPERLIPIDEMIA, UNSPECIFIED -continue statin (5) Type II diabetes mellitus Current Visit: Yes Status: Chronic Qualifiers: Diabetes mellitus ocean transportation intermediary insulin use: with jail use Diabetes mellitus complication status: without complication Qualified Code(s): E11.9 - Type 2 diabetes mellitus without complications; Z79.4 - intermission coordinator (current) use of insulin Assessment & Plan: -SSI -ADA diet -Lantus -A1C at 6.97-controlled # acute on chronic kidney failure -Baseline around 1.1/1.2, creat up to 1.3, now trending down to baseline -Patient refusing labs this morning, will attempt again this afternoon -Avoid STEPHAN/ARB- NSAIDS VTE: Xarelto Next of KIN: daughter D/C plan: When Level 2 eval completed Code status: Full Code(s): N39.0 - URINARY TRACT INFECTION, SITE NOT SPECIFIED (2) HTN (hypertension) Current Visit: Yes Status: Chronic Code(s): I10 - ESSENTIAL (PRIMARY) HYPERTENSION (3) History of dementia Current Visit: Yes Status: Chronic Code(s): Z86.59 - PERSONAL HISTORY OF OTHER MENTAL AND BEHAVIORAL DISORDERS (4) Hyperlipidemia Current Visit: Yes Status: Chronic Code(s): E78.5 - HYPERLIPIDEMIA, UNSPECIFIED (5) Type II diabetes mellitus Current Visit: Yes Status: Chronic Qualifiers: Diabetes mellitus jail insulin use: with jail use Diabetes mellitus complication status: without complication Qualified Code(s): E11.9 - Type 2 diabetes mellitus without complications; Z79.4 - intermission coordinator (current) use of insulin (6) Acute on chronic renal failure Current Visit: Yes Status: Acute Code(s): N17.9 - ACUTE KIDNEY FAILURE, UNSP ECIFIED; N18.9 - CHRONIC KIDNEY DISEASE, UNSPECIFIED
[2024-02-18 18:30] LABS: Absolute Neutrophil Ct (ANC) 3.67 x10^3/uL (1.4-6.9); BASOPHIL % 0.8 % (0.0-0.4); Basophil (Absolute #) 0.06 x10^3/uL (0-0.4); Eosinophil (Absolute #) 0.22 x10^3/uL (0-0.5); Hematocrit 40.7 % (35-47); Hemoglobin 13.2 g/dL (12.0-16.0); IMMATURE GRAN # 0.01 x10^3u/L (0.00-0.03); IMMATURE GRAN % 0.1 % (0.00-0.4); Lymphocyte (Absolute #) 2.88 x10^3/uL (1.0-4.6); Lymphocytes % 39.1 % (24.0-44.0); Mean Corpuscular Hemoglobin 29.2 pg (26-32); Mean Corpuscular Hgb Concent. 32.4 g/dL (32-36); Mean Platelet Volume 11.7 fL (7.5-11.0); Monocyte (Absolute #) 0.53 x10^3/uL (0.0-1.3); Monocytes % 7.2 % (0.0-12.0); Neutrophil % 49.8 % (36.0-66.0); Platelet Count 192 x10^3/uL (150-450); Red Blood Count 4.52 x10^6/uL (4.1-5.4); Red Cell Distribution Width 14.6 % (11.5-14.0); White Blood Count 7.4 x10^3/uL (4.0-10.5)
[2024-02-18 18:44] LABS: ALBUMIN 3.6 g/dL (3.5-5.0); ANION GAP 9.5 MEQ/L (5-15); BILIRUBIN,TOTAL 0.4 mg/dL (0.2-1.3); Calcium 9.2 mg/dL (8.4-10.2); Creatinine 1 1.28 mg/dL (0.52-1.04); EST GLOMERULAR FILTRATION RATE 41.6 ML/MIN; Potassium 4.4 mmol/L (3.5-5.1); Total Protein 6.9 g/dL (6.3-8.2)
--- NOTE | 2024-02-19 11:10 | PCM.NOTE ---
Date and Time: 02/19/24 1106 Subjective Assessment: Subjective Assessment: 83 year old female admitted 02/12/24 with UTI -culture showing ECOLI after experiencing generalized weakness and confusion. Patient received IP treatment with ceftriaxone and has completed course. Of note, There was a 3 page letter on the chart from the family friend she had been living with. Apparently pt had lived at an ECF and reported she was going to kill herself as the facility would not let her leave. Therefore, a friend picked her up and moved her in with his family. The family can no longer take care of her and dropped her off to the ER with a note asking for placement for her. Pt continues to deny suicidal or homicidal ideation. Discussed note by friend with pt and that she can no longer live there. She is awaiting placement. Case management working on this. 02/19/24: Met with patient bedside. No overnight event or complaints noted. Patient is refusing labs this morning. Discussed the importance of monitoring levels while IP. Placement pending. Denies fever,cough, sob, cp, abdominal pain, MESA, dizziness, N/V/D. - Review of Systems Constitutional: No Symptoms Eyes: No Symptoms Ears, Nose, & Throat: No Symptoms Respiratory: No Symptoms Cardiac: No Symptoms Abdominal/Gastrointestinal: No Symptoms Genitourinary Symptoms: No Symptoms Musculoskeletal: No Symptoms Skin: No Symptoms Neurological: No Symptoms Psychological: No Symptoms Endocrine: No Symptoms Hematologic/Lymphatic: No Symptoms Immunological/Allergic: No Symptoms Objective Exam General Appearance: no apparent distress Neurologic Exam: alert, oriented x 3, cooperative Skin Exam: normal color Eye Exam: PERRL Ears, Nose, Throat Exam: normal ENT inspection Neck Exam: normal inspection Respiratory Exam: normal breath sounds, lungs clear Cardiovascular Exam: regular rate/rhythm, normal heart sounds Gastrointestinal/Abdomen Exam: soft, normal bowel sounds Extremity Exam: normal inspection Back Exam: normal inspection Pelvic Exam: deferred Rectal Exam: deferred Objective Data Vital Signs: Vital Signs - 24 hr Temp Pulse Resp BP Pulse Ox 02/19/24 07:23 97.7 F 61 16 144/68 97 02/19/24 04:00 97.8 F 62 18 138/64 97 02/18/24 19:00 97.7 F 59 L 16 134/60 97 02/18/24 16:00 97.8 F 63 17 129/63 99 02/18/24 11:25 97.3 F 70 16 129/80 97 Pain Assessment - Last Documented Pain Intensity 0 Intake and Output: Intake & Output 02/16/24 02/17/24 02/18/24 02/19/24 11:59 11:59 11:59 11:59 Intake Total 1564 1420 1200 1080 Balance 1564 1420 1200 1080 Lab Results: Lab Results-Last 24 Hours 02/18/24 02/18/24 02/18/24 Range/Units 11:13 16:28 18:20 WBC (4.0-10.5) x10^3/uL RBC (4.1-5.4) x10^6/uL Hgb (12.0-16.0) g/dL Hct (35-47) % MCV (78-100) fL MCH (26-32) pg MCHC (32-36) g/dL RDW (11.5-14.0) % Plt Count (150-450) x10^3/uL MPV (7.5-11.0) fL Gran % (36.0-66.0) % Immature Gran % (Auto) (0.00-0.4) % Nucleat RBC Rel Count (0.00-0.1) % Eos # (Auto) (0-0.5) x10^3/uL Immature Gran # (Auto) (0.00-0.03) x10^3u/L Absolute Lymphs (auto) (1.0-4.6) x10^3/uL Absolute Monos (auto) (0.0-1.3) x10^3/uL Absolute Nucleated RBC (0.00-0.01) x10^3u/L Lymphocytes % (24.0-44.0) % Monocytes % (0.0-12.0) % Eosinophils % (0.00-5.0) % Basophils % (0.0-0.4) % Absolute Granulocytes (1.4-6.9) x10^3/uL Basophils # (0-0.4) x10^3/uL Sodium 137 (135-145) mmol/L Potassium 4.4 (3.5-5.1) mmol/L Chloride 105 (98-107) mmol/L Carbon Dioxide 27 (22-30) mmol/L Anion Gap 9.5 (5-15) MEQ/L BUN 38 H (7-17) mg/dL Creatinine 1.28 H (0.52-1.04) mg/dL Estimated GFR 41.6 ML/MIN Glucose 125 H (74-106) mg/dL POC Glucometer 171 H 103 (74 to 106) mg/dL Calcium 9.2 (8.4-10.2) mg/dL Total Bilirubin 0.40 (0.2-1.3) mg/dL AST 22 (14-36) U/L ALT 13 (0-35) U/L Alkaline Phosphatase 57 (38-126) U/L Serum Total Protein 6.9 (6.3-8.2) g/dL Albumin 3.6 (3.5-5.0) g/dL 02/18/24 02/18/24 02/19/24 Range/Units 18:20 21:50 07:36 WBC 7.4 (4.0-10.5) x10^3/uL RBC 4.52 (4.1-5.4) x10^6/uL Hgb 13.2 (12.0-16.0) g/dL Hct 40.7 (35-47) % MCV 90.0 (78-100) fL MCH 29.2 (26-32) pg MCHC 32.4 (32-36) g/dL RDW 14.6 H (11.5-14.0) % Plt Count 192 (150-450) x10^3/uL MPV 11.7 H (7.5-11.0) fL Gran % 49.8 (36.0-66.0) % Immature Gran % (Auto) 0.1 (0.00-0.4) % Nucleat RBC Rel Count 0.0 (0.00-0.1) % Eos # (Auto) 0.22 (0-0.5) x10^3/uL Immature Gran # (Auto) 0.01 (0.00-0.03) x10^3u/L Absolute Lymphs (auto) 2.88 (1.0-4.6) x10^3/uL Absolute Monos (auto) 0.53 (0.0-1.3) x10^3/uL Absolute Nucleated RBC 0.00 (0.00-0.01) x10^3u/L Lymphocytes % 39.1 (24.0-44.0) % Monocytes % 7.2 (0.0-12.0) % Eosinophils % 3.0 (0.00-5.0) % Basophils % 0.8 (0.0-0.4) % Absolute Granulocytes 3.67 (1.4-6.9) x10^3/uL Basophils # 0.06 (0-0.4) x10^3/uL Sodium (135-145) mmol/L Potassium (3.5-5.1) mmol/L Chloride (98-107) mmol/L Carbon Dioxide (22-30) mmol/L Anion Gap (5-15) MEQ/L BUN (7-17) mg/dL Creatinine (0.52-1.04) mg/dL Estimated GFR ML/MIN Glucose (74-106) mg/dL POC Glucometer 130 H 137 H (74 to 106) mg/dL Calcium (8.4-10.2) mg/dL Total Bilirubin (0.2-1.3) mg/dL AST (14-36) U/L ALT (0-35) U/L Alkaline Phosphatase (38-126) U/L Serum Total Protein (6.3-8.2) g/dL Albumin (3.5-5.0) g/dL Multi-Disciplinary Progress Notes: Multi-Disciplinary Progress Notes 02/19/24 10:09 Case Management Note by Naty Willett PATIENT HAS BEEN ACCEPTED AT [facility] PENDING LEVEL II FINALIZATION- S/W DAUGHTER GADIEL- SHE WOULD LIKE FOR PATIENT TO GO TO [facility]1 CHOICE. LEVEL II STILL PENDING AT THIS TIME Initialized on 02/19/24 10:09 - END OF NOTE Assessment/Plan (1) UTI (urinary tract infection) Current Visit: Yes Status: Acute Assessment & Plan: -UC with Ecoli, continue IV ceftriaxone -D/C fluids 02/16: -Discontinue Ceftriaxone, patient has finished course Code(s): N39.0 - URINARY TRACT INFECTION, SITE NOT SPECIFIED (2) HTN (hypertension) Current Visit: Yes Status: Chronic Assessment & Plan: -stable, continue home meds Code(s): I10 - ESSENTIAL (PRIMARY) HYPERTENSION (3) History of dementia Current Visit: Yes Status: Chronic Assessment & Plan: -Placement pending, unable to return to current residence as noted above -Safety plan discussed with patient per psych consult -denies homicidal/suicidal ideations -discharge most likely on Saturday 02/17: -Placement pending Code(s): Z86.59 - PERSONAL HISTORY OF OTHER MENTAL AND BEHAVIORAL DISORDERS (4) Hyperlipidemia Current Visit: Yes Status: Chronic Code(s): E78.5 - HYPERLIPIDEMIA, UNSPECIFIED -continue statin (5) Type II diabetes mellitus Current Visit: Yes Status: Chronic Qualifiers: Diabetes mellitus manager long term care insulin use: with manager long term care use Diabetes mellitus complication status: without complication Qualified Code(s): E11.9 - Type 2 diabetes mellitus without complications; Z79.4 - shelter (current) use of insulin Assessment & Plan: -SSI -ADA diet -Lantus -A1C at 6.97-controlled # acute on chronic kidney failure -Baseline around 1.1/1.2, creat up to 1.3, now trending down to baseline -Patient refusing labs this morning, will attempt again this afternoon -Avoid STEPHAN/ARB- NSAIDS 02/18: -Patient continues to refuse labs VTE: Xarelto Next of KIN: daughter D/C plan: When Level 2 eval completed Code status: Full Code(s): N39.0 - URINARY TRACT INFECTION, SITE NOT SPECIFIED (2) HTN (hypertension) Current Visit: Yes Status: Chronic Code(s): I10 - ESSENTIAL (PRIMARY) HYPERTENSION (3) History of dementia Current Visit: Yes Status: Chronic Code(s): Z86.59 - PERSONAL HISTORY OF OTHER MENTAL AND BEHAVIORAL DISORDERS (4) Hyperlipidemia Current Visit: Yes Status: Chronic Code(s): E78.5 - HYPERLIPIDEMIA, UNSPECIFIED (5) Type II diabetes mellitus Current Visit: Yes Status: Chronic Qualifiers: Diabetes mellitus manager long term care insulin use: with care home use Diabetes mellitus complication status: without complication Qualified Code(s): E11.9 - Type 2 diabetes mellitus without complications; Z79.4 - shelter (current) use of insulin (6) Acute on chronic renal failure Current Visit: Yes Status: Acute Code(s): N17.9 - ACUTE KIDNEY FAILURE, UNSPECIFIED; N18.9 - CHRONIC KIDNEY DISEASE, UNSPECIFIED
--- NOTE | 2024-02-20 10:46 | PCM.DS ---
Discharge Summary Date of Admission: 02/12/24 21:08 Date of Discharge: 02/20/24 Admitting Physician: LANEY BONILLA MD Consults: Consults on Case 02/12/24 16:48 [facility] Referral ONCE 02/13/24 09:27 Consult,Gi [Psychiatric Consult] STAT Primary Care Provider: NO FAMILY DOCTOR Allergies Allergies ampicillin Allergy (Verified 02/12/24 18:28) morphine Allergy (Verified 02/12/24 18:28) pineapple Allergy (Verified 02/12/24 18:28) Hospital Summary - Hospital Course Hospital Course: 83 year old female admitted 02/12/24 with UTI -culture showing ECOLI after experiencing generalized weakness and confusion. Patient received IP treatment with ceftriaxone and has completed course. Of note, There was a 3 page letter on the chart from the family friend she had been living with. Apparently pt had lived at an [facility] and reported she was going to kill herself as the facility would not let her leave. Therefore, a friend picked her up and moved her in with his family. The family can no longer take care of her and dropped her off to the ER with a note asking for placement for her. Pt continues to deny suicidal or homicidal ideation. Discussed note by friend with pt and that she can no longer live there. She is awaiting placement. Case management working on this. Discharge Note New Diagnosis:UTI New Medications:none Follow Up: PCP Latest Assessment & Plan 1) UTI (urinary tract infection) Current Visit: Yes Status: Acute Assessment & Plan: -UC with Ecoli, continue IV ceftriaxone -D/C fluids 02/16: -Discontinue Ceftriaxone, patient has finished course Code(s): N39.0 - URINARY TRACT INFECTION, SITE NOT SPECIFIED (2) HTN (hypertension) Current Visit: Yes Status: Chronic Assessment & Plan: -stable, continue home meds Code(s): I10 - ESSENTIAL (PRIMARY) HYPERTENSION (3) History of dementia Current Visit: Yes Status: Chronic Assessment & Plan: -Placement pending, unable to return to current residence as noted above -Safety plan discussed with patient per psych consult -denies homicidal/suicidal ideations -discharge most likely on Saturday 02/17: -Placement pending Code(s): Z86.59 - PERSONAL HISTORY OF OTHER MENTAL AND BEHAVIORAL DISORDERS (4) Hyperlipidemia Current Visit: Yes Status: Chronic Code(s): E78.5 - HYPERLIPIDEMIA, UNSPECIFIED -continue statin (5) Type II diabetes mellitus Current Visit: Yes Status: Chronic Qualifiers: Diabetes mellitus intermediate manager insulin use: with halfway use Diabetes mellitus complication status: without complication Qualified Code(s): E11.9 - Type 2 diabetes mellitus without complications; 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 Assessment & Plan: -SSI -ADA diet -Lantus -A1C at 6.97-controlled # acute on chronic kidney failure -Baseline around 1.1/1.2, creat up to 1.3, now trending down to baseline -Patient refusing labs this morning, will attempt again this afternoon -Avoid STEPHAN/ARB- NSAIDS 02/18: -Patient continues to refuse labs I spent 35 minutes [id number] with the patient on the day of discharge performing discharge exam, discussing hospital stay and discharge instructions with patient and caregivers, preparation of discharge records, prescriptions & referral forms and addressing any questions/concerns the patient had as documented above. - Vitals & Intake/Output Vital Signs: Vital Signs Temperature 98.1 F 02/20/24 07:29 Pulse Rate 69 02/20/24 07:29 Respiratory Rate 16 02/20/24 07:29 Blood Pressure 140/66 02/20/24 07:29 O2 Sat by Pulse Oximetry 97 02/20/24 07:29 Intake & Output: Intake & Output 02/17/24 02/18/24 02/19/24 02/20/24 11:59 11:59 11:59 11:59 Intake Total 1420 1200 1080 1480 Balance 1420 1200 1080 1480 - Lab Result Diagrams: 02/18/24 18:20 02/18/24 18:20 Lab Results-Last 24 Hrs: Lab Results-Last 24 Hours 02/19/24 02/19/24 02/19/24 Range/Units 11:34 16:20 21:26 POC Glucometer 156 H 151 H 151 H (74 to 106) mg/dL 02/20/24 Range/Units 07:06 POC Glucometer 146 H (74 to 106) mg/dL Micro Results-Entire Visit: Microbiology 02/12/24 16:58 Urine Culture - Final Urine, Void Escherichia Coli Accuchecks Date 02/20/24 Date 02/19/24 Date 02/19/24 Time 21:00 Time 11:38 - Procedures and Test Procedures and Tests throughout Hospitalization: Therapy Orders & Screens 02/12/24 21:34 PT Eval & Treat ( Order) ONCE Reason for Eval:: Weakness Diagnosis: Urinary tract infection, confusion OT Eval and Treat (MD Order) ONCE Comment: Physician Instructions: Reason For Exam: Diagnosis: Urinary tract infection, confusion 02/12/24 21:36 ST Eval & Treat (MD Order) ROUTINE Comment: Physician Instructions: Reason For Exam: Evaluate: Yes: WEakness Treat: Yes Reason for Eval: Weakness Diagnosis: Urinary tract infection, confusion Discharge Exam General Appearance: no apparent distress Neurologic Exam: alert, oriented x 3, cooperative Eye Exam: PERRL Ears, Nose, Throat Exam: normal ENT inspection Neck Exam: normal inspection Respiratory Exam: normal breath sounds, lungs clear Cardiovascular Exam: regular rate/rhythm, normal heart sounds Gastrointestinal/Abdomen Exam: soft, normal bowel sounds Pelvic Exam: deferred Rectal Exam: deferred Back Exam: normal inspection Extremity Exam: normal inspection Skin Exam: normal color Final Diagnosis/Problem List - Final Discharge Diagnosis/Problem (1) UTI (urinary tract infection) Current Visit: Yes Status: Acute Code(s): N39.0 - URINARY TRACT INFECTION, SITE NOT SPECIFIED (2) HTN (hypertension) Current Visit: Yes Status: Chronic Code(s): I10 - ESSENTIAL (PRIMARY) HYPERTENSION (3) History of dementia Current Visit: Yes Status: Chronic Code(s): Z86.59 - PERSONAL HISTORY OF OTHER MENTAL AND BEHAVIORAL DISORDERS (4) Hyperlipidemia Current Visit: Yes Status: Chronic Code(s): E78.5 - HYPERLIPIDEMIA, UNSPECIFIED (5) Type II diabetes mellitus Current Visit: Yes Status: Chronic (6) Acute on chronic renal failure Current Visit: Yes Status: Acute Code(s): N17.9 - ACUTE KIDNEY FAILURE, UNSPECIFIED; N18.9 - CHRONIC KIDNEY DISEASE, UNSPECIFIED - Discharge Disposition: DC TO ANY "OTHER" SKILLED NURSING Condition: Stable Prescriptions: Continue Acetaminophen 325 mg [Tylenol 325 mg] 325 mg PO Q4H PRN PRN PRN Reason: Fever Rivaroxaban [Xarelto] 1 tab PO DAILY Diclofenac Sodium [Voltaren Arthritis Pain] 1 gm TP DAILY PRN PRN PRN Reason: Pain Calcium Carbonate [Tums] 500 mg PO Q4H PRN PRN PRN Reason: Stomach Upset Guaifenesin/Dextromethorphan [Siltussin Dm Augustine 100-10Mg/5 ml] 10 ml PO Q6H PRN PRN PRN Reason: Cough Magnesium Hydroxide [Milk of Magnesia] 30 ml PO DAILY PRN PRN PRN Reason: Constipation lisinopriL [Lisinopril] 2.5 mg PO DAILY Insulin Glargine [Lantus Insulin] 9 unit SQ DAILY Glucagon 1 mg [GlucaGen 1 MG] 1 mg IJ ACHS PRN PRN Reason: Hypoglycemia Propylene Glycol/Peg 400 [Genteal Tears Severe Gel Drops] 1 drop Q6H PRN PRN PRN Reason: Allergies Docusate Sodium 1 tab PO BID Buspirone HCl 10 mg PO TID Atorvastatin Calcium 40 mg PO HS Insulin Lispro [Admelog Solostar] See Rx Instructions .ROUTE .COMPLEX ondansetron HCL [Zofran] 1 tab PO Q6HPRN PRN PRN Reason: Nausea/Vomiting Additional Instructions: SKILLED NURSING ORDERS: ACHS ACCU CHECKS 1800 ROLY DIET SEE ATTACHED MED LIST Follow up with: DOCTOR,NO FAMILY [Primary Care Provider] -
[2024-02-20 16:24] VITALS: BP 139/64; PULSE 75; RESP 16; TEMP 97.8; O2SAT 99
== END 2024-02-20 16:50 ==
LOC: ED 15:49 → MED SURG 20:31 → UNDOADMOB 20:31 → MED SURG 21:08
PROVIDERS: ADMIT Internal Medicine; ATTEND Internal Medicine
DX: N39.0 Urinary tract infection, site not specified (principal); A49.8 Other bacterial infections of unspecified site; E11.9 Type 2 diabetes mellitus without complications; I10 Essential (primary) hypertension; E78.5 Hyperlipidemia, unspecified; Z86.59 Personal history of other mental and behavioral disorders; Z79.4 Long term (current) use of insulin; N17.9 Acute kidney failure, unspecified; G93.40 Encephalopathy, unspecified; K59.00 Constipation, unspecified; F41.9 Anxiety disorder, unspecified; Z79.899 Other long term (current) drug therapy; Z79.01 Long term (current) use of anticoagulants; Z85.3 Personal history of malignant neoplasm of breast
CPT/HCPCS: 36000; 36415; 70450; 71045; 80048; 80053; 81001; 82947; 83036; 84484; 85025; 85027; 87077; 87086; 87186; 92610; 93005; 93041; 94760; 96365; 97161; 97165; 99285; Q3014; 90791; 93268; G0378; J0696; J1817; J1956; J2405; A9270-GY